=== PATIENT | female | born 1945 | race Caucasian/White ===

== ENCOUNTER 2018-06-23 18:02 | Emergency (ER) | payer MEDICARE, BC ==
[2018-06-23 18:15] VITALS: BP 159/61
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
[2018-06-23] MEDS ORDERED: Sodium Chloride 0.9% 10 ML Syringe FLUSH PRN (18:44)
--- NOTE | 2018-06-24 07:02 | CR ---
Chest: Two views of the chest were obtained. Comparison: Prior chest x-ray of 12/05/15. Increased density within the left base which appears chronic. Increased density within right upper and right lower lung which also appears similar to prior exam and presumably is chronic. I do not see any acute change within the lungs when compared to prior chest x-ray. Heart size is normal. Tortuous thoracic aorta is seen. Ventriculoperitoneal shunt is incidentally noted. Bony structures appear within normal limits for the patient's age. Impression: 1. Findings as noted above believed to be stable from previous study. Nothing acute is definitely appreciated. Diagnostic code #2
== END 2018-06-23 20:33 | disposition home or self-care (01) ==
LOC: JD.ED 18:02
DX: R60.0 Localized edema (principal); I10 Essential (primary) hypertension; E78.00 Pure hypercholesterolemia, unspecified; F41.9 Anxiety disorder, unspecified; F32.9 Major depressive disorder, single episode, unspecified; E11.9 Type 2 diabetes mellitus without complications; E03.9 Hypothyroidism, unspecified; Z79.4 Long term (current) use of insulin; Z87.891 Personal history of nicotine dependence; Z79.899 Other long term (current) drug therapy; Z88.0 Allergy status to penicillin; Z91.09 Other allergy status, other than to drugs and biological substances
CPT/HCPCS: 36415; 71046; 71046-26; 80053; 83880; 84484; 85007; 85027; 93005; 93010; 99284; 99284-25

== ENCOUNTER 2019-03-29 13:44 | Emergency (ER) | payer MEDICARE, BC ==
[2019-03-29] MEDS ORDERED: Albuterol/Ipratropium 3.0-0.5 MG/3 ML Neb Soln NEB ONE (14:34)
[2019-03-29] MEDS ORDERED: Sodium Chloride 0.9% 10 ML Syringe FLUSH PRN (14:34)
--- NOTE | 2019-03-29 15:25 | EDM.PDOC ---
ED HPI GENERAL MEDICAL PROBLEM - General Chief Complaint: Respiratory Problem Stated Complaint: COUGH Time Seen by Provider: 03/29/19 14:31 Source of Information: Reports: Patient, RN Notes Reviewed History Limitations: Reports: No Limitations - History of Present Illness INITIAL COMMENTS - FREE TEXT/NARRATIVE: Patient is a 73-year-old female who presents to the ED for the evaluation of a cough. Patient notes that this cough developed on , she states shortly after this she was placed on antibiotics for a suspected pneumonia. She does not member what that was however. She notes that she was feeling a little bit better yesterday, but today woke up with a worsening cough, and increased shortness of breath. Patient notes that she wears 3 L of oxygen as needed at home. And she has been using that continuously, and states that her oxygen sats of been just above 90 with rest. She is complaining also of body aches, congestion, and a pretty severe headache. 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 She notes she is having some mild nausea and diarrhea as well, and is coughing up a small amount of yellow phlegm with this. She notes that she does have a history of COPD, and is prone to getting pneumonia. She also notes that she has a history of RA, and she states that this is in her lungs as well. Generalized Pain Score (Numeric/FACES): 7 - Related Data Allergies Allergy/AdvReac Type Severity Reaction Status Date / Time mold Allergy Airway Verified 03/29/19 14:17 Tightness Penicillins Allergy Itching Verified 03/29/19 14:17 Home Meds: Home Meds Fluticasone Propionate [Flonase Allergy Relief] 1 spray CLARA BID PRN 12/05/15 [ History] Folic Acid 3 mg PO DAILY 12/05/15 [History] Insulin Detemir [Levemir Flextouch] 30 unit SQ DAILY 12/05/15 [History] Levothyroxine 150 mcg PO ACBREAKFAST 12/05/15 [History] Lisinopril 20 mg PO DAILY 12/05/15 [History] Omeprazole 20 mg PO DAILY PRN 12/05/15 [History] Simvastatin [Zocor] 20 mg PO BEDTIME 12/05/15 [History] traZODone 150 mg PO BEDTIME 12/05/15 [History] traMADol [Ultram] 50 mg PO Q6H PRN #20 tablet 01/01/16 [Rx] Albuterol/Ipratropium [DuoNeb 3.0-0.5 MG/3 ML] 3 ml .XX ASDIRECTED PRN 02/02/18 [History] Fluticasone/Salmeterol [Advair 250-50] 1 puff INH BID 02/02/18 [History] Albuterol [Proventil HFA] 1 - 2 puff INH Q4HR PRN 06/23/18 [History] Diclofenac Sodium [Voltaren 1% Gel] 2 gm TOP QID 06/23/18 [History] Escitalopram [Lexapro] 20 mg PO DAILY 06/23/18 [History] Furosemide [Lasix] 20 mg PO ASDIRECTED 06/23/18 [History] Hydroxychloroquine Sulfate [Plaquenil] 200 mg PO BID 06/23/18 [History] Insulin Aspart [NovoLOG] 2 - 15 units SQ TID 06/23/18 [History] Losartan [Cozaar] 50 mg PO DAILY 06/23/18 [History] Metoprolol Succinate [Toprol Xl] 25 mg PO DAILY 06/23/18 [History] Mirabegron [Myrbetriq] 25 mg PO DAILY 06/23/18 [History] Umeclidinium [place] [Incruse Ellipta*] 1 puff INH DAILY 06/23/18 [History] amLODIPine [Norvasc] 5 mg PO DAILY 06/23/18 [History] buPROPion HCl [Wellbutrin Xl] 150 mg PO DAILY 06/23/18 [History] tiZANidine HCl [Zanaflex] 2 mg PO BEDTIME PRN 06/23/18 [History] Furosemide [Lasix] 40 mg PO DAILY #30 tablet 11/12/18 [Rx] Oseltamivir [Tamiflu] 75 mg PO BID #8 cap 03/29/19 [Rx] Past Medical History HEENT History: Reports: Impaired Vision Cardiovascular History: Reports: High Cholesterol, Hypertension, [place] Respiratory History: Reports: Asthma, COPD, Pneumonia, Recurrent, SOB Musculoskeletal History: Reports: RA Neurological History: Reports: Other (See Below) Other Neuro History: hydrocephalus Psychiatric History: Reports: Anxiety, Depression Endocrine/Metabolic History: Reports: Diabetes, Type II, Hypothyroidism Oncologic (Cancer) History: Reports: Ovarian, Uterine - Past Surgical History GI Surgical History: Reports: Appendectomy, Cholecystectomy Female Surgical History: Reports: D&C Neurological Surgical History: Reports: Other (See Below) Other Neurological Surgeries/Procedures: back pain/spasms Social & Family History - Family History Family Medical History: Noncontributory - Tobacco Use Smoking Status *Q: Former Smoker Used Tobacco, but Quit: Yes Month/Year Tobacco Last Used: 30 years ago - Caffeine Use Caffeine Use: Reports: Coffee Other Caffeine Use: 2-3 cups daily coffee and seldom with soda - Recreational Drug Use Recreational Drug Use: No - Living Situation & Occupation Living situation: Reports: Occupation: Retired ED ROS GENERAL - Review of Systems Review Of Systems: See Below Constitutional: Reports: Malaise (generalized). Denies: Fever, Chills HEENT: Denies: Rhinitis Respiratory: Reports: Shortness of Breath, Cough, Sputum Cardiovascular: Denies: Chest Pain GI/Abdominal: Reports: Diarrhea, Decreased Appetite, Nausea. Denies: Abdominal Pain, Vomiting Neurological: Reports: Headache ED EXAM, GENERAL - Physical Exam Exam: See Below Exam Limited By: No Limitations General Appearance: Alert, WD/WN, No Apparent Distress Eye Exam: Bilateral Eye: EOMI, Normal Inspection, Periorbital Changes Ears: Normal External Exam Throat/Mouth: Normal Inspection, Normal Lips, Normal Teeth, Normal Gums, Normal Oropharynx, Normal Voice, No Airway Compromise Head: Atraumatic, Normocephalic Neck: Normal Inspection Respiratory/Chest: No Respiratory Distress, Lungs Clear, Chest Non-Tender, Decreased Breath Sounds (diffuse bilaterally). No: Rhonchi, Wheezing Cardiovascular: Normal Peripheral Pulses, Regular Rate, Rhythm, No Edema, No Murmur Peripheral Pulses: 3+: Radial (L), Radial (R) Extremities: Normal Inspection, Normal Capillary Refill Neurological: Alert, Oriented, Normal Cognition, No Motor/Sensory Deficits Psychiatric: Normal Affect, Normal Mood Skin Exam: Warm, Dry, Intact, Normal Color, No Rash EKG INTERPRETATION EKG Date: 03/29/19 Time: 14:57 Rhythm: NSR Rate (Beats/Min): 64 [place]: Normal P-Wave: Present QRS: Normal ST-T: Normal QT: Prolonged EKG Interpretation Comments: Reviewed with Dr. Kuylen. No acute ischemic changes. Course - Vital Signs Last Recorded V/S: Last Vital Signs Temp 98.1 F 03/29/19 14:14 Pulse 74 03/29/19 14:14 Resp 26 H 03/29/19 14:14 BP 138/113 H 03/29/19 14:14 Pulse Ox 95 03/29/19 14:56 - Orders/Labs/Meds Orders: Active Orders 24 hr Category Date Time Status EKG Documentation Completion [RC] STAT Care 03/29/19 14:34 Ordered Peripheral IV Care [RC] . DIRECTED Care 03/29/19 14:34 Ordered RT Aerosol Therapy [RC] ASDIRECTED Care 03/29/19 14:35 Ordered Chest 2V [CR] Stat Exams 03/29/19 14:33 Ordered Sodium Chloride 0.9% [Saline Flush] Med 03/29/19 14:34 Ordered 10 ml FLUSH ASDIRECTED PRN Peripheral IV Insertion Adult [OM.PC] Stat Oth 03/29/19 14:34 Ordered Medication Orders Sodium Chloride (Saline Flush) 10 ml FLUSH ASDIRECTED PRN PRN Reason: Keep Vein Open Last Admin: 03/29/19 14:50 Dose: 10 ml Labs: Laboratory Tests 03/29/19 03/29/19 03/29/19 Range/Units 14:25 14:25 14:25 WBC 5.74 (3.98-10.04) K/mm3 RBC 4.10 (3.98-5.22) M/mm3 Hgb 12.0 (11.2-15.7) gm/dl Hct 38.0 (34.1-44.9) % MCV 92.7 D (79.4-94.8) fl MCH 29.3 (25.6-32.2) pg MCHC 31.6 L (32.2-35.5) g/dl RDW Std Deviation 45.2 (36.4-46.3) fL Plt Count 180 L (182-369) K/mm3 MPV 10.5 (9.4-12.3) fl Neutrophils % (Manual) 58 (40-60) % Band Neutrophils % 0 (0-10) % Lymphocytes % (Manual) 29 (20-40) % Atypical Lymphs % 0 % Monocytes % (Manual) 10 (2-10) % Eosinophils % (Manual) 2 (0.7-5.8) % Basophils % (Manual) 1 (0.1-1.2) Platelet Estimate Adequate RBC Morph Comment Normal PT 11.3 (9.7-12.0) SECONDS INR 1.04 APTT 23 (22-31) SECONDS Puncture Site ABG pH (7.35-7.45) ABG pCO2 (35.0-45.0) mmHg ABG pO2 (80.0-100.0) mmHg ABG HCO3 (22.0-26.0) meq/L ABG O2 Saturation (96.0-97.0) % ABG Base Excess (-2-2.0) Glenn Test A-a Gradient mmHg O2 Delivery Device Oxygen Flow Rate FiO2 (21.00-100.00) % Sodium 141 (136-145) mEq/L Potassium 3.7 (3.5-5.1) mEq/L Chloride 104 (98-107) mEq/L Carbon Dioxide 28 (21-32) mEq/L Anion Gap 12.7 (5-15) BUN 15 (7-18) mg/dL Creatinine 1.4 H (0.55-1.02) mg/dL Est Cr Clr Drug Dosing 30.49 mL/min Estimated GFR (MDRD) 37 (>60) mL/min BUN/Creatinine Ratio 10.7 L (14-18) Glucose 139 H (83-115) mg/dL Calcium 8.4 L (8.5-10.1) mg/dL Total Bilirubin 0.5 (0.2-1.0) mg/dL AST 33 (15-37) U/L ALT 32 (14-59) U/L Alkaline Phosphatase 88 (46-116) U/L Troponin I < 0.017 (0.00-0.056) ng/mL NT-Pro-B Natriuret Pep (0-125) pg/mL Total Protein 7.6 (6.4-8.2) g/dl Albumin 2.7 L (3.4-5.0) g/dl Globulin 4.9 gm/dL Albumin/Globulin Ratio 0.6 L (1-2) 03/29/19 03/29/19 Range/Units 14:25 15:43 WBC (3.98-10.04) K/mm3 RBC (3.98-5.22) M/mm3 Hgb (11.2-15.7) gm/dl Hct (34.1-44.9) % MCV (79.4-94.8) fl MCH (25.6-32.2) pg MCHC (32.2-35.5) g/dl RDW Std Deviation (36.4-46.3) fL Plt Count (182-369) K/mm3 MPV (9.4-12.3) fl Neutrophils % (Manual) (40-60) % Band Neutrophils % (0-10) % Lymphocytes % (Manual) (20-40) % Atypical Lymphs % % Monocytes % (Manual) (2-10) % Eosinophils % (Manual) (0.7-5.8) % Basophils % (Manual) (0.1-1.2) Platelet Estimate RBC Morph Comment PT (9.7-12.0) SECONDS INR APTT (22-31) SECONDS Puncture Site Lt radial ABG pH 7.45 (7.35-7.45) ABG pCO2 40.8 (35.0-45.0) mmHg ABG pO2 79.0 L (80.0-100.0) mmHg ABG HCO3 28.2 H (22.0-26.0) meq/L ABG O2 Saturation 91.8 L (96.0-97.0) % ABG Base Excess 4.4 H (-2-2.0) Glenn Test Positive A-a Gradient 56 mmHg O2 Delivery Device Nasal cannula Oxygen Flow Rate 1.5 FiO2 26.00 (21.00-100.00) % Sodium (136-145) mEq/L Potassium (3.5-5.1) mEq/L Chloride (98-107) mEq/L Carbon Dioxide (21-32) mEq/L Anion Gap (5-15) BUN (7-18) mg/dL Creatinine (0.55-1.02) mg/dL Est Cr Clr Drug Dosing mL/min Estimated GFR (MDRD) (>60) mL/min BUN/Creatinine Ratio (14-18) Glucose (83-115) mg/dL Calcium (8.5-10.1) mg/dL Total Bilirubin (0.2-1.0) mg/dL AST (15-37) U/L ALT (14-59) U/L Alkaline Phosphatase (46-116) U/L Troponin I (0.00-0.056) ng/mL NT-Pro-B Natriuret Pep 728 H (0-125) pg/mL Total Protein (6.4-8.2) g/dl Albumin (3.4-5.0) g/dl Globulin gm/dL Albumin/Globulin Ratio (1-2) Meds: Medications Generic Name Dose Route Start Last Admin Trade Name Freq PRN Reason Stop Dose Admin Sodium Chloride 10 ml 03/29/19 14:34 03/29/19 14:50 Saline Flush FLUSH 10 ml ASDIRECTED PRN Administration Keep Vein Open Discontinued Medications Generic Name Dose Route Start Last Admin Trade Name Freq PRN Reason Stop Dose Admin Albuterol/Ipratropium 3 ml 03/29/19 14:34 03/29/19 14:56 Duoneb 3.0-0.5 Mg/3 Ml NEB 03/29/19 14:35 3 ml ONETIME ONE Administration Oseltamivir Phosphate 150 mg 03/29/19 16:17 Tamiflu PO 03/29/19 16:18 ONETIME ONE - Re-Assessments/Exams Free Text/Narrative Re-Assessment/Exam: 03/29/19 15:26 Patient presents to the ED for evaluation of worsening cough, and other generalized complaints. Did swab her for influenza, and have ordered CBC, CMP, BNP, EKG, troponin, coags, ABG, a duoneb and a chest x-ray for initial evaluation and management. 03/29/19 16:04 Patient's chest x-ray is done, and appears to be within normal limits for herself, this was compared to a chest x-ray done in June 2018. There are no obvious acute changes. These were reviewed by myself and Dr. Restrepo. There were areas that were suspicious for possible fibrosis however. No obvious signs of pneumonia or consolidation. White blood cell count is within normal limits, metabolic panel is essentially unremarkable. EKG shows no acute ischemic changes and trop is negative as well. Patient's influenza swab was positive for both influenza A and influenza B. It is likely that this is what is causing most of her issues. Departure - Departure Time of Disposition: 16:25 Disposition: Home, Self-Care 01 Condition: Fair Clinical Impression: Influenza A, Influenza B - Discharge Information *PRESCRIPTION DRUG MONITORING PROGRAM REVIEWED*: No *COPY OF PRESCRIPTION DRUG MONITORING REPORT IN PATIENT ROBB: No Prescriptions: Oseltamivir [Tamiflu] 75 mg PO BID #8 cap Instructions: Influenza, Adult, [id number] Referrals: Milan Alexandra MD [Primary Care Provider] - Forms: ED Department Discharge, ED Return to Work/School Form Additional Instructions: You have been evaluated in the ED for your cough and other generalized complaints. You did test positive for influenza A & B. Please try to limit your exposure to others until you are 24 hours fever free. May take 500mg Tylenol/600 mg ibuprofen every 6 hours as needed for general aches/fever. Please encourage fluid intake as well as a bland diet until you can tolerate normal foods. Recommend you use your nebulizers more, such as 3 times a day while you are feeling most ill. You were given a prescription for Tamiflu, please take 1 tab 2 times a day until gone. Your first 2 doses were given to you in the ER, you were given the first dose in the ER, and given 1 tab to take home for tomorrow morning. Please return to the ED if your symptoms should change or worsen. Sepsis Event Note - Evaluation Sepsis Screening Result: No Definite Risk - Focused Exam Vital Signs: Vital Signs Temp Pulse Resp BP Pulse Ox Pulse Ox 03/29/19 14:56 95 03/29/19 14:14 98.1 F 74 26 H 138/113 H 95 Date Exam was Performed: 03/29/19 Time Exam was Performed: 16:25 - My Orders Last 24 Hours: My Active Orders 03/29/19 14:33 Chest 2V [CR] Stat 03/29/19 14:34 EKG Documentation Completion [RC] STAT Peripheral IV Care [RC] . DIRECTED Sodium Chloride 0.9% [Saline Flush] 10 ml FLUSH ASDIRECTED PRN Peripheral IV Insertion Adult [OM.PC] Stat 03/29/19 14:35 RT Aerosol Therapy [RC] ASDIRECTED - Assessment/Plan Last 24 Hours: My Active Orders 03/29/19 14:33 Chest 2V [CR] Stat 03/29/19 14:34 EKG Documentation Completion [RC] STAT Peripheral IV Care [RC] . DIRECTED Sodium Chloride 0.9% [Saline Flush] 10 ml FLUSH ASDIRECTED PRN Peripheral IV Insertion Adult [OM.PC] Stat 03/29/19 14:35 RT Aerosol Therapy [RC] ASDIRECTED
[2019-03-29] MEDS ORDERED: Oseltamivir 75 MG Cap PO ONE (16:17)
[2019-03-29] MEDS ORDERED: Oseltamivir 75 MG Cap ONE ×2 (16:29→16:34)
[2019-03-29 16:42] VITALS: BP 130/76; PULSE 66
--- NOTE | 2019-03-29 17:55 | CR ---
Chest: 2 views of the chest were obtained. Comparison: Prior chest x-ray of 06/23/18. Increasing density is seen within both sides of the chest when compared to prior exam. Some of this appears chronic but difficult to exclude superimposed developing bronchitis/pneumonia. Ventriculoperitoneal shunt appears to be present. Bony structures shows mild scoliosis. Surgical clips are noted from prior cholecystectomy. Impression: 1. Increasing density within both sides is chest. As mentioned above, some of this appears chronic but difficult to exclude superimposed bronchitis/pneumonia. 2. Other findings believed to be incidental and nonacute as described above. Diagnostic code #3 This report was dictated in [place] Standard Time
== END 2019-03-29 16:42 | disposition home or self-care (01) ==
LOC: JD.ED 13:44
DX: J10.1 Influenza due to other identified influenza virus with other respiratory manifestations (principal); I10 Essential (primary) hypertension; I25.2 Old myocardial infarction; J44.9 Chronic obstructive pulmonary disease, unspecified; E03.9 Hypothyroidism, unspecified; E11.9 Type 2 diabetes mellitus without complications; Z79.4 Long term (current) use of insulin; F32.9 Major depressive disorder, single episode, unspecified; Z88.0 Allergy status to penicillin; Z91.048 Other nonmedicinal substance allergy status; Z79.51 Long term (current) use of inhaled steroids; Z79.890 Hormone replacement therapy; Z79.899 Other long term (current) drug therapy; Z87.891 Personal history of nicotine dependence; R06.02 Shortness of breath
CPT/HCPCS: 36415; 36600; 71046; 80053; 82803; 83880; 84484; 85007; 85027; 85610; 85730; 87804; 93005; 94640; 99284; A9270; 93010; 99283; J7620-GY

== ENCOUNTER 2020-07-11 09:18 | Emergency (ER) | payer MEDICARE, BC ==
[2020-07-11 10:56] VITALS: PULSE 66
[2020-07-11] MEDS ORDERED: HYDROmorphone 0.5 MG/0.5 ML Syringe IVPUSH ONE ×2 (11:09→14:52)
[2020-07-11] MEDS ORDERED: Ondansetron 4 MG/2 ML SDV IVPUSH ONE (11:09)
[2020-07-11] MEDS ORDERED: Metoclopramide 10 MG/2 ML SDV IVPUSH ONE (11:09)
--- NOTE | 2020-07-11 11:09 | EDM.PDOC ---
ED HPI GENERAL MEDICAL PROBLEM - General Chief Complaint: Neck Problem Stated Complaint: SWOLLEN NECK Time Seen by Provider: 07/11/20 11:03 Source of Information: Reports: Patient History Limitations: Reports: No Limitations - History of Present Illness INITIAL COMMENTS - FREE TEXT/NARRATIVE: 75-year-old female presents to the ED with a painful swelling that is gradually enlarging inferior to her right mandible starting last July 06. She was seen in the clinic and did have a CT of her neck at [facility]. It was felt that she had enlarged submandibular gland and she was started on oral antibiotic of which she does not know the name of. She reports no improvement. Pain is increasing in the right side of her neck and making it extremely difficult to swallow. She states she could not eat solids for the last 2 days and only sips of clear fluids. Every attempt to swallow is extremely painful. She is unclear whether she is running a fever or experiencing any chills. Of note she is a type II diabetic using insulin for control. She is on multiple other medications supposedly for rheumatoid arthritis which makes her immunocompromised. On [employer] on [facility] where she purchased her medications. She was started on Cipro 250 mg twice daily for 10 days and clindamycin 150 mg p.o. 4 times daily for 10 days as well. Onset: Gradual Onset Date: 07/06/20 Duration: Day(s):, Getting Worse Location: Reports: Neck (Inferior to the right mandible which is exquisitely painful reddened and swollen compatible with a abscess likely originating from submandibular gland.) Quality: Reports: Ache, Pressure, Throbbing Severity: Moderate Improves with: Reports: None, Other (Been on Cipro and clindamycin for 4 days and is getting worse in spite of antibiotic treatment.) Worsens with: Reports: Other Context: Denies: Activity, Exercise (In the area makes it much worse. Also swallowing makes the pain much worse.), Lifting, Sick Contact, Trauma Associated Symptoms: Reports: Loss of Appetite. Denies: No Other Symptoms, Conf usion, Chest Pain, Cough, cough w sputum, Diaphoresis, Fever/Chills, Headaches, Malaise, Nausea/Vomiting, Rash, Seizure, Shortness of Breath, Syncope, Weakness Treatments WRITER EDITOR: Reports: Acetaminophen Right Neck Pain Score (Numeric/FACES): 7 - Related Data Allergies Allergy/AdvReac Type Severity Reaction Status Date / Time mold Allergy Airway Verified 07/11/20 10:56 Tightness Penicillins Allergy Itching Verified 07/11/20 10:56 Home Meds: Home Meds Fluticasone Propionate [Flonase Allergy Relief] 1 spray CLARA BID PRN 12/05/15 [History] Folic Acid 3 mg PO DAILY 12/05/15 [History] Insulin Detemir [Levemir Flextouch] 30 unit SQ DAILY 12/05/15 [History] Levothyroxine 150 mcg PO ACBREAKFAST 12/05/15 [History] Lisinopril 20 mg PO DAILY 12/05/15 [History] Omeprazole 20 mg PO DAILY PRN 12/05/15 [History] Simvastatin [Zocor] 20 mg PO BEDTIME 12/05/15 [History] traZODone 150 mg PO BEDTIME 12/05/15 [History] traMADol [Ultram] 50 mg PO Q6H PRN #20 tablet 01/01/16 [Rx] Albuterol/Ipratropium [DuoNeb 3.0-0.5 MG/3 ML] 3 ml .XX ASDIRECTED PRN 02/02/18 [History] Fluticasone/Salmeterol [Advair 250-50] 1 puff INH BID 02/02/18 [History] Albuterol [Proventil HFA] 1 - 2 puff INH Q4HR PRN 06/23/18 [History] Diclofenac Sodium [Voltaren 1% Gel] 2 gm TOP QID 06/23/18 [History] Escitalopram [Lexapro] 20 mg PO DAILY 06/23/18 [History] Furosemide [Lasix] 20 mg PO ASDIRECTED 06/23/18 [History] Hydroxychloroquine Sulfate [Plaquenil] 200 mg PO BID 06/23/18 [History] Insulin Aspart [NovoLOG] 2 - 15 units SQ TID 06/23/18 [History] Losartan [Cozaar] 50 mg PO DAILY 06/23/18 [History] Metoprolol Succinate [Toprol Xl] 25 mg PO DAILY 06/23/18 [History] Mirabegron [Myrbetriq] 25 mg PO DAILY 06/23/18 [History] [facility] [Incruse Ellipta*] 1 puff INH DAILY 06/23/18 [History] amLODIPine [Norvasc] 5 mg PO DAILY 06/23/18 [History] buPROPion HCL [Wellbutrin Xl] 150 mg PO DAILY 06/23/18 [History] tiZANidine HCl [Zanaflex] 2 mg PO BEDTIME PRN 06/23/18 [History] Furosemide [Lasix] 40 mg PO DAILY #30 tablet 11/12/18 [Rx] Oseltamivir [Tamiflu] 75 mg PO BID #8 cap 03/29/19 [Rx] Past Medical History HEENT History: Reports: Allergic Rhinitis (Chronic allergic rhinitis. Using Flonase.), Hard of Hearing, Impaired Vision Cardiovascular History: Reports: High Cholesterol, Hypertension, SC Respiratory History: Reports: Asthma, COPD, Pneumonia, Recurrent, Pulmonary Fibrosis (Reportedly from having pneumonia some many times.), SOB Musculoskeletal History: Reports: RA (On Plaquenil and Voltaren for rheumatoid arthritis) Neurological History: Reports: Other (See Below) Other Neuro History: hydrocephalus--has a ventriculoperitoneal shunt on the right side. Psychiatric History: Reports: Anxiety, Depression Endocrine/Metabolic History: Reports: Diabetes, Type II, Hypothyroidism Oncologic (Cancer) History: Reports: Ovarian, Uterine - Past Surgical History GI Surgical History: Reports: Appendectomy, Cholecystectomy Female Surgical History: Reports: D&C Neurological Surgical History: Reports: Other (See Below) Other Neurological Surgeries/Procedures: back pain/spasms Social & Family History - Family History Family Medical History: No Pertinent Family History - Caffeine Use Caffeine Use: Reports: Coffee Other Caffeine Use: 2-3 cups daily coffee and seldom with soda - Living Situation & Occupation Living situation: Reports: Occupation: Retired ED ROS ENT - Review of Systems Review Of Systems: See Below Constitutional: Reports: Malaise, Weakness, Fatigue, Decreased Appetite (To painful to eat.). Denies: Fever, Chills, Weight Loss HEENT: Reports: Glasses (Hearing loss without use of hearing aids.), Hearing Loss, Throat Pain (Severe throat pain right side of her neck making it very difficult to even drink water.) Respiratory: Reports: Shortness of Breath. Denies: Wheezing, Pleuritic Chest Pain (Duration.), Cough, Sputum, Hemoptysis Cardiovascular: Reports: Blood Pressure Problem, Dyspnea on Exertion (Lesional edema lower extremities.), Edema. Denies: Chest Pain, Claudication, Lightheadedness, Orthopnea Endocrine: Reports: Fatigue ( Chronically) GI/Abdominal: Reports: Constipation : Reports: Frequency, Incontinence Musculoskeletal: Reports: Joint Pain (And stress components.) Skin: Reports: No Symptoms ( Knees hips low back neck and shoulders at times.) Neurological: Reports: No Symptoms Psychiatric: Reports: No Symptoms Hematologic/Lymphatic: Reports: No Symptoms Immunologic: Reports: No Symptoms ED EXAM, ENT - Physical Exam Exam: See Below Exam Limited By: Other (Temperature is 36.1 degrees. Heart rate 66 and sinus respiratory 16 BP 150/117 this is not likely correct since the pulse pressure is too close together. Oximetry reads 92% on room air.) General Appearance: Alert, WD/WN, Moderate Distress, Other (He has read indurated swelling inferior anterior aspect of the right mandible. The area is 9 cm in width and approximately 6 to 8 cm in depth and very tender to movement.) Eye Exam: Bilateral Eye: Normal Inspection, PERRL (No scleral icterus or blepharal pallor.) Ears: Normal TMs Nose: Normal Inspection Mouth/Throat: Normal Inspection, Normal Gums, Other (Patient on the undersurface of the tongue reveals a painful mass right side. No mass palpable on palpation of the left side. The posterior oropharynx is normal.) Head: Atraumatic, Normocephalic, Other (No outward signs of any head or facial trauma.) Neck: Supple (Neck is supple. She does have some loss of lateral rotation due to painful), Other (Patient has a large indurated mass right anterior inferior right mandible which is red and warm to palpation. It measures approximately 9 cm x 8 cm in dimension and is only slightly mobile. It is very tender to touch.). No: Normal Inspection Respiratory/Chest: No Respiratory Distress ( mass in her right side of her neck when looking to the right.), Lungs Clear, No Accessory Muscle Use, Decreased Breath Sounds Cardiovascular: Regular Rate, Rhythm, No Edema, No Gallop, No Murmur, No Rub, Other. No: Normal Peripheral Pulses (Lungs are mildly diminished to the posterior lung cruz by 20%.) GI/Abdominal: Normal Bowel Sounds (Sounds are difficult to hear due to thick chest.), Soft, Non-Tender, No Organomegaly, No Mass, Pelvis Stable, Other (Patient has had previous cholecystectomy and appendectomy.) Back: Normal Inspection, Full Range of Motion, Other (Increased lordotic curvature lumbar spine. He has evidence of previous lumbar spine surgery with midline healed scar.). No: CVA Tenderness (L), CVA Tenderness (R) Extremities: Pedal Edema (Pedal edema at the ankles.), Other (3 changes in both knees) Neurological: Alert, Oriented, CN II-XII Intact, Normal Cognition Psychiatric: Normal Affect, Normal Mood Skin: Warm, Dry, Intact, Normal Color, No Rash (Red indurated rash over a mass in the right anterior inferior neck inferior to the mandible.) #1 Interpretation EKG Date: 07/11/20 Time: 12:15 Rhythm: NSR Rate (Beats/Min): 65 [place]: Normal P-Wave: Present QRS: Other (Early R wave transition consider right ventricular hypertrophy pattern versus septal hypertrophy.) ST-T: Other (T wave flattening aVL nonspecific finding) QT: Prolonged (QTC mildly prolonged) EKG Interpretation Comments: Borderline ECG Course - Vital Signs Last Recorded V/S: Last Vital Signs Temp 36.1 C 07/11/20 10:53 Pulse 66 07/11/20 10:53 Resp 16 07/11/20 10:53 BP 150/117 H 07/11/20 10:53 Pulse Ox 92 L 07/11/20 10:53 - Orders/Labs/Meds Orders: Active Orders 24 hr Category Date Time Status EKG Documentation Completion [RC] STAT Care 07/11/20 11:11 Active CULTURE BLOOD [BC] Stat Lab 07/11/20 11:47 Received CULTURE BLOOD [BC] Stat Lab 07/11/20 11:58 Received URINALYSIS W/MICROSCOPIC [UA W/MICROSCOPIC] [URIN] Stat Lab 07/11/20 11:12 Ordered Sodium Chloride 0.9% [Normal Saline] 1,000 ml Med 07/11/20 13:30 Active IV ASDIRECTED Sodium Chloride 0.9% [Saline Flush] Med 07/11/20 12:49 Active 10 ml FLUSH ONETIME PRN Blood Culture x2 Reflex Set [OM.PC] Stat Oth 07/11/20 11:12 Ordered Medication Orders Sodium Chloride (Normal Saline) 1,000 mls @ 999 mls/hr IV ASDIRECTED MAT Sodium Chloride (Sodium Chloride 0.9% 10 Ml Syringe) 10 ml FLUSH ONETIME PRN PRN Reason: IV FLUSH Last Admin: 07/11/20 13:12 Dose: 10 ml Documented by: SHAZIA Labs: Laboratory Tests 07/11/20 07/11/20 07/11/20 Range/Units 11:37 11:37 11:37 WBC 14.41 H (3.98-10.04) K/mm3 RBC 4.37 (3.98-5.22) M/mm3 Hgb 13.4 (11.2-15.7) gm/dl Hct 41.9 (34.1-44.9) % MCV 95.9 H D (79.4-94.8) fl MCH 30.7 (25.6-32.2) pg MCHC 32.0 L (32.2-35.5) g/dl RDW Std Deviation 53.2 H (36.4-46.3) fL Plt Count 222 (182-369) K/mm3 MPV 11.1 (9.4-12.3) fl Neutrophils % (Manual) 74 H (40-60) % Band Neutrophils % 0 (0-10) % Lymphocytes % (Manual) 22 (20-40) % Atypical Lymphs % 0 % Monocytes % (Manual) 2 (2-10) % Eosinophils % (Manual) 2 (0.7-5.8) % Basophils % (Manual) 0 L (0.1-1.2) Platelet Estimate Adequate RBC Morph Comment Normal PT (9.7-12.0) SECONDS INR APTT (21.7-31.4) SECONDS Sodium 135 L (136-145) mEq/L Potassium 4.3 (3.5-5.1) mEq/L Chloride 96 L (98-107) mEq/L Carbon Dioxide 25 (21-32) mEq/L Anion Gap 18.3 H (5-15) BUN 28 H (7-18) mg/dL Creatinine 2.0 H (0.55-1.02) mg/dL Est Cr Clr Drug Dosing TNP Estimated GFR (MDRD) 24 (>60) mL/min BUN/Creatinine Ratio 14.0 (14-18) Glucose 199 H (83-115) mg/dL Calcium 9.4 (8.5-10.1) mg/dL Magnesium 2.3 (1.8-2.4) mg/dl Total Bilirubin 0.7 (0.2-1.0) mg/dL AST 37 (15-37) U/L ALT 49 (14-59) U/L Alkaline Phosphatase 125 H (46-116) U/L C-Reactive Protein 30.6 H* (<1.0) mg/dL NT-Pro-B Natriuret Pep 710 H (0-125) pg/mL Total Protein 8.6 H (6.4-8.2) g/dl Albumin 3.2 L (3.4-5.0) g/dl Globulin 5.4 gm/dL Albumin/Globulin Ratio 0.6 L (1-2) SARS-CoV-2 RNA (RAAD) (NEGATIVE) 07/11/20 07/11/20 Range/Units 12:24 12:30 WBC (3.98-10.04) K/mm3 RBC (3.98-5.22) M/mm3 Hgb (11.2-15.7) gm/dl Hct (34.1-44.9) % MCV (79.4-94.8) fl MCH (25.6-32.2) pg MCHC (32.2-35.5) g/dl RDW Std Deviation (36.4-46.3) fL Plt Count (182-369) K/mm3 MPV (9.4-12.3) fl Neutrophils % (Manual) (40-60) % Band Neutrophils % (0-10) % Lymphocytes % (Manual) (20-40) % Atypical Lymphs % % Monocytes % (Manual) (2-10) % Eosinophils % (Manual) (0.7-5.8) % Basophils % (Manual) (0.1-1.2) Platelet Estimate RBC Morph Comment PT 11.4 (9.7-12.0) SECONDS INR 1.07 APTT 28.1 (21.7-31.4) SECONDS Sodium (136-145) mEq/L Potassium (3.5-5.1) mEq/L Chloride (98-107) mEq/L Carbon Dioxide (21-32) mEq/L Anion Gap (5-15) BUN (7-18) mg/dL Creatinine (0.55-1.02) mg/dL Est Cr Clr Drug Dosing Estimated GFR (MDRD) (>60) mL/min BUN/Creatinine Ratio (14-18) Glucose (83-115) mg/dL Calcium (8.5-10.1) mg/dL Magnesium (1.8-2.4) mg/dl Total Bilirubin (0.2-1.0) mg/dL AST (15-37) U/L ALT (14-59) U/L Alkaline Phosphatase (46-116) U/L C-Reactive Protein (<1.0) mg/dL NT-Pro-B Natriuret Pep (0-125) pg/mL Total Protein (6.4-8.2) g/dl Albumin (3.4-5.0) g/dl Globulin gm/dL Albumin/Globulin Ratio (1-2) SARS-CoV-2 RNA (RAAD) Negative (NEGATIVE) Meds: Medications Generic Name Dose Route Start Last Admin Trade Name Onur PRN Reason Stop Dose Admin Sodium Chloride 1,000 mls @ 999 mls/hr 07/11/20 13:30 Normal Saline IV ASDIRECTED MAT Sodium Chloride 10 ml 07/11/20 12:49 07/11/20 13:12 Sodium Chloride 0.9% 10 Ml Syringe FLUSH 10 ml ONETIME PRN Administration IV FLUSH Discontinued Medications Generic Name Dose Route Start Last Admin Trade Name Onur PRN Reason Stop Dose Admin Diphenhydramine HCl 12.5 mg 07/11/20 11:10 07/11/20 12:10 Diphenhydramine 50 Mg/Ml Sdv IVPUSH 07/11/20 11:11 12.5 mg ONETIME ONE Administration Hydromorphone HCl 0.5 mg 07/11/20 11:09 07/11/20 12:14 Hydromorphone 0.5 Mg/0.5 Ml Syringe IVPUSH 07/11/20 11:10 0.5 mg ONETIME ONE Administration Hydromorphone HCl 0.5 mg 07/11/20 14:52 07/11/20 15:00 Hydromorphone 0.5 Mg/0.5 Ml Syringe IVPUSH 07/11/20 14:53 0.5 mg ONETIME ONE Administration Dextrose/Sodium Chloride 1,000 mls @ 150 mls/hr 07/11/20 11:15 Dextrose 5%-Normal Saline IV ASDIRECTED MAT Sodium Chloride 1,000 mls @ 150 mls/hr 07/11/20 11:15 07/11/20 14:17 Normal Saline IV 999 mls/hr ASDIRECTED AMT Infusion Clindamycin Phosphate 900 mg/ 50 mls @ 100 mls/hr 07/11/20 12:05 07/11/20 12:28 Premix IV 07/11/20 12:34 100 mls/hr ONETIME ONE Administration Sodium Chloride 100 mls @ 75 mls/hr 07/11/20 13:00 07/11/20 13:12 Normal Saline IV 75 mls/hr ASDIRECTED MAT Administration Doxycycline Hyclate 100 mg/ 100 mls @ 100 mls/hr 07/11/20 14:47 07/11/20 15:16 Sodium Chloride IV 07/11/20 15:46 100 mls/hr ONETIME ONE Administration Iopamidol 50 ml 07/11/20 12:49 07/11/20 13:12 Iopamidol 755 Mg/Ml 50 Ml Bottle IVPUSH 07/11/20 12:50 50 ml ONETIME ONE Administration Metoclopramide HCl 7.5 mg 07/11/20 11:09 07/11/20 12:12 Metoclopramide 10 Mg/2 Ml Sdv IVPUSH 07/11/20 11:10 7.5 mg ONETIME ONE Administration Ondansetron HCl 4 mg 07/11/20 11:09 Ondansetron 4 Mg/2 Ml Sdv IVPUSH 07/11/20 11:10 ONETIME ONE - Radiology Interpretation Free Text/Narrative:: 75-year-old female presents to the ED with a large indurated mass inferior anterior to her right mandible. The mass is at least 9 x 8 cm in size indurated warm to palpation suggesting underlying abscess. It is exquisitely tender to movement and very painful for her to swallow. Mass came on gradually since July 06. She was seen by her primary care physician Dr. Alexandra--has been taking Cipro to 50 mg twice daily since , July 07 as well as clindamycin 150 mg 4 times daily and the mass is enlarging in spite of antibiotic therapy. Plan she will have routine labs performed. COVID-19 screen. Chest x-ray and ECG in preparation for surgery as she appears that she has a abscess in this area that is going to need to be drained likely by ENT surgery. She will have CT tissues of the neck with IV contrast. - Re-Assessments/Exams Free Text/Narrative Re-Assessment/Exam: 07/11/20 13:06 White count is mildly elevated at 14.41. The differential shows 74% neutrophils no bands cells reported. Hemoglobin is 13.4 with hematocrit of 41.9. MCV is elevated at 95.9. Platelet count 222,000. PT is 11.4 with an INR of 1.07 PTT is 28.1. Sodium is low at 135 with a potassium of 4.3. Chloride 96 with a bicarb of 25. Anion gap is elevated at 18.3 indicating volume depletion. BUN is 28 with a creatinine of 2.0 GFR is only 24 which is stage IV renal insufficiency. Glucose is 199. Calcium 9.4. Magnesium 2.3. Liver function normal. C-reactive protein is 30.6. Total protein 8.6 with an albumin fraction of 3.2. X-ray done portably reveals bilateral patchy infiltrates which appear to be somewhat chronic according to the radiologist. No acute parenchymal changes are seen. Ventriculoperitoneal shunt catheter is appreciated. Heart size is within normal limits. Tortuous thoracic aorta is noted. No acute osseous abnormalities are appreciated. Of concern is that the chest x-ray does have the appearance of possible COVID-19 illness. COVID-19 screen has been ordered but is not yet available. We will be normal saline now opened up to 4. This is due to the need for contrast for CT soft tissue of the neck. Renal function is poor with a GFR of 24. She is volume depleted however. 07/11/20 13:21 COVID-19 screen is negative. BNP is pending. CT scan of the soft tissues of the neck completed with a small dose of IV contrast due to poor renal function. Findings revealed a large low-density mass noted on the right side which is bilobulated. This obscures the submandibular salivary gland and could be submandibular salivary gland in etiology or simply obscuring the gland. There is slight ill-defined surface margins. This finding has the greatest AP measurement of 3.8 cm in greatest craniocaudal measurement of 4.7 cm. Intervertebral shunt catheter is noted. Visualized paranasal sinuses mastoid sinuses show nothing acute. Right and left globes are symmetric. No retrobulbar abnormalities appreciated. Parotid salivary glands are within normal limits. Parapharyngeal soft tissues are within normal limits. No prevertebral soft tissue swelling is noted. Visualized upper lungs show interstitial change most likely due to fibrosis. Scattered degenerative changes seen on bone window settings within the spine. 07/11/20 15:06 and on the phone for over an hour trying to find a place for this lady to go to have this suspect abscess incised and drained. Problems are encountered with PACs as well as we were not able to send the CT scan of her soft tissues of her neck with contrast or chest x-ray by PACS system to either [place] or [facility] in [place]. Disc will therefore be made of both images. We identified that there is no ear nose and throat surgeon on-call in [place] that could incise and drain this at this time. There is also no maxillofacial surgery available at this time is the one on-call is ill and the other one is out of the country. I therefore had to speak with 1 call through [facility] and ear nose and throat surgeon has accepted care but she preferred the patient be admitted to by the hospitalist for IV antibiotic therapy. I therefore spoke with and he is accepted care. We have no ambulance availability at this time neither with the travel this far away from [place]. She therefore has the ability to be transferred by private vehicle and I will send her with her daughter to take her to [place]. Ear nose and throat surgeon asked that we cover her for possible MRSA. Linezolid interacts with all of her medications and therefore was contraindicated. She was therefore given doxycycline 100 mg IV. She was also given a second dose of Dilaudid 0. 5 mg IV prior to transfer for pain relief. She will stay n.p.o. en route to [place]. Departure - Departure Time of Disposition: 16:50 Disposition: DC/Tfer to Acute Hospital 02 Condition: Fair Clinical Impression: Mass of right submandibular region, Pulmonary fibrosis, Mild congestive heart failure - Discharge Information *PRESCRIPTION DRUG MONITORING PROGRAM REVIEWED*: Not Applicable *COPY OF PRESCRIPTION DRUG MONITORING REPORT IN PATIENT ROBB: Not Applicable Referrals: Milan Alexandra MD [Primary Care Provider] - Forms: ED Department Discharge Additional Instructions: Travel to the [facility] in [place] to be admitted to the hospital under the care of Dr. Simons. Do not have anything to eat or drink in route to the hospital in case surgery is going to be carried out tonight. This will depend a bit upon which time you arrived. Sepsis Event Note (ED) - Evaluation Sepsis Screening Result: No Definite Risk - Focused Exam Vital Signs: Vital Signs Temp Pulse Resp BP Pulse Ox 07/11/20 10:53 36.1 C 66 16 150/117 H 92 L - My Orders Last 24 Hours: My Active Orders 07/11/20 11:11 EKG Documentation Completion [RC] STAT 07/11/20 11:12 URINALYSIS W/MICROSCOPIC [UA W/MICROSCOPIC] [URIN] Stat Blood Culture x2 Reflex Set [OM.PC] Stat 07/11/20 11:47 CULTURE BLOOD [BC] Stat 07/11/20 11:58 CULTURE BLOOD [BC] Stat 07/11/20 12:49 Sodium Chloride 0.9% [Saline Flush] 10 ml FLUSH ONETIME PRN 07/11/20 13:30 Sodium Chloride 0.9% [Normal Saline] 1,000 ml IV ASDIRECTED - Assessment/Plan Last 24 Hours: My Active Orders 07/11/20 11:11 EKG Documentation Completion [RC] STAT 07/11/20 11:12 URINALYSIS W/MICROSCOPIC [UA W/MICROSCOPIC] [URIN] Stat Blood Culture x2 Reflex Set [OM.PC] Stat 07/11/20 11:47 CULTURE BLOOD [BC] Stat 07/11/20 11:58 CULTURE BLOOD [BC] Stat 07/11/20 12:49 Sodium Chloride 0.9% [Saline Flush] 10 ml FLUSH ONETIME PRN 07/11/20 13:30 Sodium Chloride 0.9% [Normal Saline] 1,000 ml IV ASDIRECTED
[2020-07-11] MEDS ORDERED: diphenhydrAMINE 50 MG/ML SDV IVPUSH ONE (11:10)
[2020-07-11] MEDS ORDERED: Sodium Chloride 0.9% 1,000 ML IV SCH ×2 (11:15→13:30)
[2020-07-11] MEDS ORDERED: Dextrose 5%-0.9% NaCl 1,000 ML IV SCH (11:15)
[2020-07-11] MEDS ORDERED: Clindamycin Phosphate in D5W 900 MG in Premix Bag 1 BAG IV ONE ×2 (12:05)
--- NOTE | 2020-07-11 12:35 | CR ---
Chest: Portable view of the chest was obtained. Comparison: Prior chest x-ray of 03/29/19. Patchy areas of increased density are noted on both sides of the chest which appear to be chronic. No acute parenchymal change is seen. Ventriculoperitoneal shunt catheter is seen. Heart size is within normal limits. Tortuous thoracic aorta is noted. No acute osseous abnormality is appreciated. Impression: 1. Findings as noted above which are stable. 2. Nothing acute is appreciated. Diagnostic code #2
[2020-07-11] MEDS ORDERED: Sodium Chloride 0.9% 10 ML Syringe FLUSH PRN (12:49)
[2020-07-11] MEDS ORDERED: Iopamidol 755 MG/ML 50 ML Bottle IVPUSH ONE (12:49)
[2020-07-11] MEDS ORDERED: Sodium Chloride 0.9% 100 ML IV SCH (13:00)
--- NOTE | 2020-07-11 13:46 | CT ---
CT neck Technique: Multiple axial sections through the neck were obtained. Intravenous contrast was utilized. Reconstructed coronal and sagittal images were obtained. Comparison: No previous neck study. Findings: Large low density mass is noted on the right side which is bilobulated. This obscures the submandibular salivary gland and could be submandibular salivary gland in etiology or simply obscuring the gland. This has slight ill defined surface margins. This finding has the greatest AP measurement of 3.8 cm and greatest craniocaudal measurement of 4.7 cm. Intervertebral shunt catheter is noted. Visualized paranasal sinuses and mastoid sinuses show nothing acute. Right and left globes are symmetric. No retrobulbar abnormality is appreciated. Parotid salivary glands are within normal limits. Parapharyngeal soft tissues are within normal limits. No prevertebral soft tissue swelling is noted. Visualized upper lungs shows interstitial change most likely due to fibrosis. Scattered degenerative change is seen on bone window settings within the spine. Impression: 1. Large low density mass which obscures the right submandibular salivary gland. Uncertain if this is a mass which obscures this gland or an enlarged submandibular salivary gland. Findings are suspicious for possible neoplasm. 2. No adenopathy is seen within the neck. 3. Shunt catheter is noted. 4. Other findings which are chronic as noted above. Diagnostic code #9
[2020-07-11] MEDS ORDERED: Doxycycline 100 MG in Sodium Chloride 0.9% 100 ML IV ONE (14:47)
[2020-07-11 16:59] VITALS: BP 153/64
== END 2020-07-11 16:20 ==
LOC: JD.ED 09:18
DX: R22.1 Localized swelling, mass and lump, neck (principal); J84.10 Pulmonary fibrosis, unspecified; I11.0 Hypertensive heart disease with heart failure; I50.9 Heart failure, unspecified; E78.00 Pure hypercholesterolemia, unspecified; I25.2 Old myocardial infarction; J44.9 Chronic obstructive pulmonary disease, unspecified; E11.9 Type 2 diabetes mellitus without complications; E03.9 Hypothyroidism, unspecified; Z20.822 Contact with and (suspected) exposure to COVID-19; Z91.048 Other nonmedicinal substance allergy status; Z88.0 Allergy status to penicillin; Z79.4 Long term (current) use of insulin; Z79.899 Other long term (current) drug therapy
CPT/HCPCS: 36415; 70491; 71045; 80053; 83735; 83880; 85007; 85027; 85610; 85730; 86140; 87040; 93005; 96365; 96367; 96375; 96376; 99285; J1170; J1200; J2765; J3490; J7030; Q9967; U0002; 93010

== ENCOUNTER 2020-10-04 07:05 | Emergency (ER) | payer MEDICARE, BC ==
--- NOTE | 2020-10-04 07:28 | EDM.PDOC ---
ED HPI GENERAL MEDICAL PROBLEM - General Chief Complaint: Neuro Symptoms/Deficits Stated Complaint: LIGHTHEADED/DIZZY/NAUSEA Time Seen by Provider: 10/04/20 07:14 - History of Present Illness INITIAL COMMENTS - FREE TEXT/NARRATIVE: 75-year-old female comes into the emergency room with dizziness left-sided weakness poor coordination. She thinks this started yesterday morning but she is not absolutely certain her last known normal according to her was Saturday evening around 9 PM. The patient's did not witness the patient yesterday morning but the patient got out of bed about 9:00 and had some dizziness inability to concentrate. She had some intermittent nausea. This last evening she noticed her legs not necessarily doing what she wanted them to not related to dizziness and had increasing difficulty moving around. This was more noticeable this morning. Patient has a history of a MANAGER ADMINISTRATIVE shunt this they think was updated in 1999. The is not aware of any change in speech. And has not noticed any change in facial expression. Headache Pain Score (Numeric/FACES): 5 - Related Data Allergies Allergy/AdvReac Type Severity Reaction Status Date / Time mold Allergy Airway Verified 10/04/20 07:31 Tightness Penicillins Allergy Itching Verified 10/04/20 07:31 Home Meds: Home Meds Fluticasone Propionate [Flonase Allergy Relief] 1 spray CLARA BID PRN 12/05/15 [History] Folic Acid 3 mg PO DAILY 12/05/15 [History] Insulin Detemir [Levemir Flextouch] 30 unit SQ DAILY 12/05/15 [History] Levothyroxine 150 mcg PO ACBREAKFAST 12/05/15 [History] Lisinopril 20 mg PO DAILY 12/05/15 [History] Omeprazole 20 mg PO DAILY PRN 12/05/15 [History] Simvastatin [Zocor] 20 mg PO BEDTIME 12/05/15 [History] traZODone 150 mg PO BEDTIME 12/05/15 [History] traMADol [Ultram] 50 mg PO Q6H PRN #20 tablet 01/01/16 [Rx] Albuterol/Ipratropium [DuoNeb 3.0-0.5 MG/3 ML] 3 ml .XX ASDIRECTED PRN 02/02/18 [History] Fluticasone/Salmeterol [Advair 250-50] 1 puff INH BID 02/02/18 [History] Albuterol [Proventil HFA] 1 - 2 puff INH Q4HR PRN 06/23/18 [History] Diclofenac Sodium [Voltaren 1% Gel] 2 gm TOP QID 06/23/18 [History] Escitalopram [Lexapro] 20 mg PO DAILY 06/23/18 [History] Furosemide [Lasix] 20 mg PO ASDIRECTED 06/23/18 [History] Hydroxychloroquine Sulfate [Plaquenil] 200 mg PO BID 06/23/18 [History] Insulin Aspart [NovoLOG] 2 - 15 units SQ TID 06/23/18 [History] Losartan [Cozaar] 50 mg PO DAILY 06/23/18 [History] Metoprolol Succinate [Toprol Xl] 25 mg PO DAILY 06/23/18 [History] Mirabegron [Myrbetriq] 25 mg PO DAILY 06/23/18 [History] Umeclidinium Reubens [Incruse Ellipta*] 1 puff INH DAILY 06/23/18 [History] amLODIPine [Norvasc] 5 mg PO DAILY 06/23/18 [History] buPROPion HCL [Wellbutrin Xl] 150 mg PO DAILY 06/23/18 [History] tiZANidine HCl [Zanaflex] 2 mg PO BEDTIME PRN 06/23/18 [History] Furosemide [Lasix] 40 mg PO DAILY #30 tablet 11/12/18 [Rx] Oseltamivir [Tamiflu] 75 mg PO BID #8 cap 03/29/19 [Rx] Past Medical History HEENT History: Reports: Allergic Rhinitis, Hard of Hearing, Impaired Vision Cardiovascular History: Reports: High Cholesterol, Hypertension, [place] Respiratory History: Reports: Asthma, COPD, Pneumonia, Recurrent, Pulmonary Fibrosis, SOB Musculoskeletal History: Reports: RA Neurological History: Reports: Other (See Below) Other Neuro History: hydrocephalus--has a ventriculoperitoneal shunt on the ri t side. Psychiatric History: Reports: Anxiety, Depression Endocrine/Metabolic History: Reports: Diabetes, Type II, Hypothyroidism Oncologic (Cancer) History: Reports: Ovarian, Uterine - Past Surgical History GI Surgical History: Reports: Appendectomy, Cholecystectomy Female Surgical History: Reports: D&C Neurological Surgical History: Reports: Other (See Below) Other Neurological Surgeries/Procedures: back pain/spasms Social & Family History - Family History Family Medical History: No Pertinent Family History - Caffeine Use Caffeine Use: Reports: Coffee Other Caffeine Use: 2-3 cups daily coffee and seldom with soda - Living Situation & Occupation Living situation: Reports: Occupation: Retired ED ROS GENERAL - Review of Systems Review Of Systems: See Below Constitutional: Reports: Weakness. Denies: Fever, Chills HEENT: Reports: No Symptoms Respiratory: Reports: No Symptoms Cardiovascular: Reports: No Symptoms GI/Abdominal: Reports: No Symptoms Musculoskeletal: Denies: Joint Pain, Muscle Pain Skin: Reports: No Symptoms Neurological: Reports: Confusion, Dizziness, Weakness. Denies: Headache ED EXAM, GENERAL - Physical Exam Exam: See Below Exam Limited By: No Limitations General Appearance: Alert, No Apparent Distress, Other (There is a stroke score is 9. Blood sugar is 77 on admission) Eye Exam: Bilateral Eye: EOMI, PERRL Ears: Normal External Exam, Normal Canal, Hearing Grossly Normal, Normal TMs, Other (Needs she had more difficulty reading moving and reinserting her hearing aid on the left) Nose: Normal Inspection, Normal Mucosa, No Blood Throat/Mouth: Normal Inspection, Normal Lips, Normal Gums, Normal Oropharynx, Normal Voice, No Airway Compromise Head: Atraumatic, Normocephalic Neck: Normal Inspection, Supple, Non-Tender, Full Range of Motion Respiratory/Chest: No Respiratory Distress, Lungs Clear, Normal Breath Sounds Cardiovascular: Regular Rate, Rhythm, No Edema, No Murmur GI/Abdominal: Normal Bowel Sounds, Soft, Non-Tender, Other (Obese) Back Exam: Normal Inspection. No: CVA Tenderness (L), CVA Tenderness (R) Neurological: Other (Cranial nerves appear to be intact no facial droop. 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 strength equal.) Skin Exam: Warm, Dry, Intact #1 Interpretation EKG Date: 10/04/20 Rhythm: NSR Rate (Beats/Min): 64 [place]: Normal P-Wave: Present QRS: Other (Normal QRS morphology suspicious for a early transition) ST-T: Normal QT: Prolonged (Prolonged) EKG Interpretation Comments: Borderline EKG Course - Vital Signs Last Recorded V/S: Last Vital Signs Temp 36.3 C 10/04/20 07:26 Pulse 65 10/04/20 07:26 Resp 18 10/04/20 07:26 BP 173/85 H 10/04/20 07:26 Pulse Ox 94 L 10/04/20 07:26 - Orders/Labs/Meds Orders: Active Orders 24 hr Category Date Time Status EKG Documentation Completion [RC] STAT Care 10/04/20 07:38 Active Head wo Cont [CT] Routine Exams 10/04/20 07:32 Taken Labs: Laboratory Tests 10/04/20 10/04/20 10/04/20 Range/Units 07:20 07:20 07:20 WBC 6.68 (3.98-10.04) K/mm3 RBC 4.47 (3.98-5.22) M/mm3 Hgb 13.3 (11.2-15.7) gm/dl Hct 42.2 (34.1-44.9) % MCV 94.4 (79.4-94.8) fl MCH 29.8 (25.6-32.2) pg MCHC 31.5 L (32.2-35.5) g/dl RDW Std Deviation 54.4 H (36.4-46.3) fL Plt Count 208 (182-369) K/mm3 MPV 11.7 (9.4-12.3) fl Neut % (Auto) 56.4 (34.0-71.1) % Lymph % (Auto) 25.9 (19.3-51.7) % [place] % (Auto) 10.9 (4.7-12.5) % Eos % (Auto) 5.8 (0.7-5.8) Baso % (Auto) 0.9 (0.1-1.2) % Neut # (Auto) 3.76 (1.56-6.13) K/mm3 Lymph # (Auto) 1.73 (1.18-3.74) K/mm3 [place] # (Auto) 0.73 H (0.24-0.36) K/mm3 Eos # (Auto) 0.39 H (0.04-0.36) K/mm3 Baso # (Auto) 0.06 (0.01-0.08) K/mm3 PT 10.7 (9.7-12.0) SECONDS INR 1.00 APTT 21.4 L (21.7-31.4) SECONDS Sodium 142 (136-145) mEq/L Potassium 4.1 (3.5-5.1) mEq/L Chloride 106 (98-107) mEq/L Carbon Dioxide 30 (21-32) mEq/L Anion Gap 10.1 (5-15) BUN 24 H (7-18) mg/dL Creatinine 1.5 H (0.55-1.02) mg/dL Est Cr Clr Drug Dosing TNP Estimated GFR (MDRD) 34 (>60) mL/min BUN/Creatinine Ratio 16.0 (14-18) Glucose 78 (70-99) mg/dL Calcium 8.7 (8.5-10.1) mg/dL Total Bilirubin 0.4 (0.2-1.0) mg/dL AST 25 (15-37) U/L ALT 33 (14-59) U/L Alkaline Phosphatase 105 (46-116) U/L Troponin I < 0.017 (0.00-0.056) ng/mL Total Protein 7.8 (6.4-8.2) g/dl Albumin 3.1 L (3.4-5.0) g/dl Globulin 4.7 gm/dL Albumin/Globulin Ratio 0.7 L (1-2) - Re-Assessments/Exams Free Text/Narrative Re-Assessment/Exam: 10/04/20 08:36 ET evaluation of the head is suspicious for a right sided parietal subacute infarct that is somewhat small. Case was discussed with Dr. Horn, on-call neurologist at [facility] in [place] who believes the patient would be better served to be sent to the emergency room for further evaluation. I did discuss the findings and the recommendations with the patient and the patient's and they agree with the plan. Departure - Departure Time of Disposition: 08:38 Disposition: DC/Tfer to Acute Hospital 02 Clinical Impression: CVA (cerebral vascular accident) - Discharge Information Referrals: Milan Alexandra MD [Primary Care Provider] - Forms: ED Department Discharge Sepsis Event Note (ED) - Focused Exam Vital Signs: Vital Signs Temp Pulse Resp BP Pulse Ox 10/04/20 07:26 36.3 C 65 18 173/85 H 94 L - My Orders Last 24 Hours: My Active Orders 10/04/20 07:32 Head wo Cont [CT] Routine 10/04/20 07:38 EKG Documentation Completion [RC] STAT - Assessment/Plan Last 24 Hours: My Active Orders 10/04/20 07:32 Head wo Cont [CT] Routine 10/04/20 07:38 EKG Documentation Completion [RC] STAT
[2020-10-04 07:31] VITALS: BP 173/85; PULSE 65
[2020-10-04] MEDS ORDERED: Dextrose 5%-0.9% NaCl 1,000 ML IV SCH (08:45)
--- NOTE | 2020-10-04 08:52 | CT ---
Head CT Technique: Multiple axial sections through the brain were obtained. Instructed coronal and sagittal images were obtained. Comparison: Prior head CT study 10/22/13. Findings: Disconnected ventricular shunt is seen. Additional ventricular shunt is noted with connection to the outside catheter. No ventricular dilatation is seen. Sulci over the convexities are stable. Scattered areas of diminished density are seen within the periventricular white matter. This is compatible with small vessel ischemic demyelination change. Possible small subacute infarct within the posterior right parietal region extending to the cortex. No other abnormal parenchymal densities are seen. No evidence of intracranial hemorrhage is seen. No midline shift or mass-effect is seen. Bone window settings were reviewed. Visualized mastoid sinuses and paranasal sinuses show no acute abnormality. No acute calvarial abnormality is seen. Atherosclerotic calcification is noted within the carotid siphon. Impression: 1. Ventricular shunts as noted above which are stable. No ventricular dilatation is seen. 2. Mild senescent change as noted above. 3. Findings suspicious for small subacute infarct within the posterior right parietal region. MRI would be confirmatory if clinically needed. Diagnostic code #3 MTDD
== END 2020-10-04 09:15 ==
LOC: JD.ED 07:05
DX: I63.9 Cerebral infarction, unspecified (principal); E78.00 Pure hypercholesterolemia, unspecified; I10 Essential (primary) hypertension; I25.2 Old myocardial infarction; J44.9 Chronic obstructive pulmonary disease, unspecified; E11.9 Type 2 diabetes mellitus without complications; E03.9 Hypothyroidism, unspecified; Z88.0 Allergy status to penicillin; Z91.048 Other nonmedicinal substance allergy status; Z79.4 Long term (current) use of insulin; Z79.899 Other long term (current) drug therapy
CPT/HCPCS: 36415; 70450; 80053; 82947; 84484; 85025; 85610; 85730; 93005; 99285; J7042; 93010

== ENCOUNTER 2021-04-10 17:09 | Emergency (ER) | payer MEDICARE, BC ==
[2021-04-10 17:29] VITALS: BP 152/69; PULSE 68
== END 2021-04-10 19:19 | disposition home or self-care (01) ==
LOC: JD.ED 17:09
DX: U07.1 COVID-19 (principal); E78.00 Pure hypercholesterolemia, unspecified; I10 Essential (primary) hypertension; I25.2 Old myocardial infarction; E11.9 Type 2 diabetes mellitus without complications; E03.9 Hypothyroidism, unspecified; E66.9 Obesity, unspecified; Z68.38 Body mass index [BMI] 38.0-38.9, adult; Z86.73 Personal history of transient ischemic attack (TIA), and cerebral infarction without residual deficits; Z88.0 Allergy status to penicillin; Z91.048 Other nonmedicinal substance allergy status; Z79.4 Long term (current) use of insulin; Z79.899 Other long term (current) drug therapy
CPT/HCPCS: 36415; 80053; 83735; 85025; 86140; 99283

== ENCOUNTER 2021-04-11 21:51 | Emergency (ER) | payer MEDICARE, BC ==
[2021-04-11 22:13] VITALS: BP 199/77; PULSE 78
[2021-04-11] MEDS ORDERED: Acetaminophen 325 MG Tab PO ONE (22:31)
[2021-04-11] MEDS ORDERED: Dexamethasone 6 MG TABLET PO ONE (22:33)
[2021-04-11] MEDS ORDERED: Cefdinir 300 MG Cap PO ONE (22:38)
== END 2021-04-11 23:08 | disposition home or self-care (01) ==
LOC: JD.ED 21:51
DX: U07.1 COVID-19 (principal); J44.9 Chronic obstructive pulmonary disease, unspecified; E11.9 Type 2 diabetes mellitus without complications; E03.9 Hypothyroidism, unspecified; M06.9 Rheumatoid arthritis, unspecified; E66.9 Obesity, unspecified; Z68.38 Body mass index [BMI] 38.0-38.9, adult; Z91.048 Other nonmedicinal substance allergy status; Z79.899 Other long term (current) drug therapy; Z86.73 Personal history of transient ischemic attack (TIA), and cerebral infarction without residual deficits; Z87.891 Personal history of nicotine dependence
CPT/HCPCS: 71045; 99283; A9270; J8540

== ENCOUNTER 2021-06-05 12:55 | Emergency (ER) | payer MEDICARE, BC ==
[2021-06-05] MEDS ORDERED: Ondansetron 4 MG/2 ML SDV IVPUSH ONE (14:09)
[2021-06-05] MEDS ORDERED: Sodium Chloride 0.9% 1,000 ML IV STA (14:09)
[2021-06-05] MEDS ORDERED: HYDROmorphone 0.5 MG/0.5 ML Syringe IVPUSH ONE (14:09)
[2021-06-05] MEDS ORDERED: Iopamidol 612 MG/ML 100 ML Bottle IVPUSH ONE (14:15)
[2021-06-05] MEDS ORDERED: Sodium Chloride 0.9% 10 ML Syringe FLUSH PRN (14:15)
[2021-06-05 17:31] VITALS: BP 153/65; PULSE 60
== END 2021-06-05 17:10 | disposition home or self-care (01) ==
LOC: JD.ED 12:55
DX: R10.11 Right upper quadrant pain (principal); R10.31 Right lower quadrant pain; E78.00 Pure hypercholesterolemia, unspecified; I10 Essential (primary) hypertension; I25.2 Old myocardial infarction; J44.9 Chronic obstructive pulmonary disease, unspecified; K21.9 Gastro-esophageal reflux disease without esophagitis; E11.9 Type 2 diabetes mellitus without complications; E03.9 Hypothyroidism, unspecified; E66.9 Obesity, unspecified; Z68.41 Body mass index [BMI] 40.0-44.9, adult; Z86.73 Personal history of transient ischemic attack (TIA), and cerebral infarction without residual deficits; Z91.048 Other nonmedicinal substance allergy status; Z88.0 Allergy status to penicillin; Z79.4 Long term (current) use of insulin; Z79.899 Other long term (current) drug therapy; Z87.891 Personal history of nicotine dependence
CPT/HCPCS: 36415; 74176; 80053; 81001; 82977; 83690; 85025; 86140; 87086; 87088; 87186; 99284; J7030; 99285

== ENCOUNTER 2021-07-24 14:19 | Emergency (ER) | payer MEDICARE, BC ==
[2021-07-24] MEDS ORDERED: Sodium Chloride 0.9% 1,000 ML IV STA (14:52)
[2021-07-24] MEDS ORDERED: Insulin Lispro 100 Unit/ML 3 ML KwikPen SUBCUT ONE (15:56)
[2021-07-24 17:40] VITALS: BP 144/78; PULSE 78
== END 2021-07-24 17:40 | disposition home or self-care (01) ==
LOC: JD.ED 14:19
DX: E11.65 Type 2 diabetes mellitus with hyperglycemia (principal); R60.1 Generalized edema; N28.9 Disorder of kidney and ureter, unspecified; E78.00 Pure hypercholesterolemia, unspecified; I10 Essential (primary) hypertension; I25.2 Old myocardial infarction; J44.9 Chronic obstructive pulmonary disease, unspecified; K21.9 Gastro-esophageal reflux disease without esophagitis; E03.9 Hypothyroidism, unspecified; E66.9 Obesity, unspecified; Z86.73 Personal history of transient ischemic attack (TIA), and cerebral infarction without residual deficits; Z88.0 Allergy status to penicillin; Z91.048 Other nonmedicinal substance allergy status; Z79.4 Long term (current) use of insulin; Z79.899 Other long term (current) drug therapy; Z68.41 Body mass index [BMI] 40.0-44.9, adult
CPT/HCPCS: 36415; 71045; 80053; 82009; 82947; 85025; 99283; J1815; J7030; 99284

== ENCOUNTER 2021-08-22 09:43 | Emergency (ER) | payer MEDICARE, BC ==
[2021-08-22 10:53] VITALS: BP 157/80; PULSE 66
[2021-08-22 11:10] LABS: CORONAVIRUS COVID-19 NAA NEGATIVE (NEGATIVE)
[2021-08-22 12:53] LABS: ESTIMATED GFR 32 mL/min (>60)
== END 2021-08-22 13:36 | disposition home or self-care (01) ==
LOC: JD.ED 09:43
DX: J40 Bronchitis, not specified as acute or chronic (principal); I50.9 Heart failure, unspecified; J84.10 Pulmonary fibrosis, unspecified; K21.9 Gastro-esophageal reflux disease without esophagitis; E78.00 Pure hypercholesterolemia, unspecified; I25.2 Old myocardial infarction; I10 Essential (primary) hypertension; E03.9 Hypothyroidism, unspecified; E11.9 Type 2 diabetes mellitus without complications; E66.9 Obesity, unspecified; Z68.30 Body mass index [BMI] 30.0-30.9, adult; Z86.73 Personal history of transient ischemic attack (TIA), and cerebral infarction without residual deficits; Z86.16 Personal history of COVID-19; Z90.49 Acquired absence of other specified parts of digestive tract; Z79.899 Other long term (current) drug therapy; Z79.4 Long term (current) use of insulin; Z88.0 Allergy status to penicillin; Z91.048 Other nonmedicinal substance allergy status; Z20.822 Contact with and (suspected) exposure to COVID-19
CPT/HCPCS: 0241U; 36415; 71045; 80053; 83880; 84484; 86140; 93005; 99284; 93010

== ENCOUNTER 2022-01-17 17:39 | Observation (INO) | payer MEDICARE, BC ==
[2022-01-17] MEDS ORDERED: Polyethylene Glycol 3350 Powder 17 GM Packet PO PRN (18:58)
[2022-01-17] MEDS ORDERED: HALOPERIDOL LACTATE 2 MG/ML PO PRN (18:58)
[2022-01-17] MEDS ORDERED: oxyCODONE 5 MG Tab **OWN MED PO PRN (18:58)
[2022-01-17] MEDS ORDERED: Acetaminophen 650 MG Supp RECTAL PRN (18:58)
[2022-01-17] MEDS ORDERED: Triamcinolone Acetonide 0.1% Crm 15 GM Tube TOP PRN (18:58)
[2022-01-17] MEDS ORDERED: IPRATROPIUM INH PRN (18:58)
[2022-01-17] MEDS ORDERED: ALBUTEROL INH PRN (18:58)
[2022-01-17] MEDS ORDERED: HYOSCYAMINE SULFATE 0.125 MG PO PRN (18:58)
[2022-01-17] MEDS ORDERED: Sodium Chloride 0.65% Nasal Spray 45 ML Bottle NASBOTH PRN (18:58)
[2022-01-17] MEDS ORDERED: Bisacodyl 10 MG Supp RECTAL PRN (18:58)
[2022-01-17] MEDS ORDERED: Ondansetron 4 MG Tab.DIS **OWN MED PO PRN (21:22)
[2022-01-17] MEDS: Acetaminophen 325 MG Tab PO SCH (21:34)
[2022-01-17] MEDS: diphenhydrAMINE 25 MG Cap PO SCH (22:28)
[2022-01-17] MEDS: LORAZEPAM 1 MG PO SCH (22:31)
[2022-01-17] MEDS: Famotidine 20 MG Tab **OWN MED PO SCH (22:32)
[2022-01-18] MEDS: MORPHINE 20 MG/ML PO PRN (00:27)
[2022-01-18] MEDS: LEVOTHYROXINE 175 MCG PO SCH (06:07)
[2022-01-18] MEDS ORDERED: Diclofenac Sodium 1% Gel 100 GM Tube TOP PRN (09:00)
[2022-01-18] MEDS ORDERED: Sennosides 8.6 MG Tab PO SCH (09:00)
[2022-01-18] MEDS ORDERED: Fluticasone NASAL Spray 16 GM Bottle NASBOTH PRN (11:59)
[2022-01-18] MEDS ORDERED: Formoterol/Mometasone 100-5 MCG 8.8 GM Inhaler IH PRN (12:25)
[2022-01-18] MEDS: INSULN SQ SCH ×4 (13:06→21:03)
[2022-01-18] MEDS: INSULIN DETEMIR 100 UNIT/ML SQ SCH ×4 (13:06→21:03)
[2022-01-18] MEDS: INSULIN ASPART 100 UNIT/ML SQ SCH ×2 (13:13→18:00)
[2022-01-18] MEDS: ESCITALOPRAM 20 MG PO SCH (13:57)
[2022-01-18] MEDS: OXYBUTYNIN CHLORIDE 10 MG PO SCH (13:58)
[2022-01-18] MEDS: Metoprolol Succinate 25 MG Tab.ER **PTOM PO SCH (13:58)
[2022-01-18] MEDS: predniSONE 10 MG Tab **PTOM PO SCH (13:58)
[2022-01-18] MEDS: BUPROPION 150 MG PO SCH (13:59)
[2022-01-18] MEDS: Sennosides 8.6 MG Tab PO SCH (13:59)
[2022-01-18] MEDS: LORAZEPAM 1 MG PO SCH ×3 (13:59→21:02)
[2022-01-18] MEDS: Acetaminophen 325 MG Tab PO SCH ×3 (14:46→21:05)
[2022-01-18] MEDS: Furosemide 40 MG Tab **PTOM PO SCH (14:48)
[2022-01-18] MEDS: Nystatin Topical Powder 15 GM Bottle TOP SCH ×2 (14:49→21:03)
[2022-01-18] MEDS ORDERED: Insulin Aspart Protamine/Insulin Aspart 70-30 100 Units/ML 10 ML Vial SUBCUT SCH (17:00)
[2022-01-18] MEDS ORDERED: INSULIN ASPART 100 UNIT/ML SQ SCH (17:00)
[2022-01-18] MEDS: diphenhydrAMINE 25 MG Cap PO SCH (21:02)
[2022-01-18] MEDS: Famotidine 20 MG Tab **OWN MED PO SCH (21:04)
[2022-01-18] MEDS: TRAZODONE 100 MG PO SCH (21:04)
[2022-01-19] MEDS: oxyCODONE 5 MG Tab **OWN MED PO PRN ×2 (00:09→16:01)
[2022-01-19] MEDS: LEVOTHYROXINE 175 MCG PO SCH (07:01)
[2022-01-19] MEDS: Furosemide 40 MG Tab **PTOM PO SCH ×2 (07:01→14:33)
[2022-01-19] MEDS: OXYBUTYNIN CHLORIDE 10 MG PO SCH (09:14)
[2022-01-19] MEDS: LORAZEPAM 1 MG PO SCH ×2 (09:14→22:04)
[2022-01-19] MEDS: Metoprolol Succinate 25 MG Tab.ER **PTOM PO SCH (09:20)
[2022-01-19] MEDS: BUPROPION 150 MG PO SCH (09:21)
[2022-01-19] MEDS: METOLAZONE 2.5 MG PO SCH (09:23)
[2022-01-19] MEDS: Sennosides 8.6 MG Tab PO SCH (09:24)
[2022-01-19] MEDS: Acetaminophen 325 MG Tab PO SCH ×3 (09:25→22:06)
[2022-01-19] MEDS: ESCITALOPRAM 20 MG PO SCH (09:26)
[2022-01-19] MEDS: predniSONE 10 MG Tab **PTOM PO SCH (09:26)
[2022-01-19] MEDS: Nystatin Topical Powder 15 GM Bottle TOP SCH ×3 (09:27→22:05)
[2022-01-19] MEDS: INSULIN ASPART 100 UNIT/ML SQ SCH ×3 (09:29→17:17)
[2022-01-19] MEDS: INSULN SQ SCH ×2 (09:30→22:05)
[2022-01-19] MEDS: INSULIN DETEMIR 100 UNIT/ML SQ SCH ×2 (09:30→22:05)
[2022-01-19] MEDS: LORazepam 0.5 MG Tab PO PRN ×2 (11:31→17:28)
[2022-01-19] MEDS: MORPHINE 20 MG/ML PO PRN (16:05)
[2022-01-19] MEDS: diphenhydrAMINE 25 MG Cap PO SCH (22:05)
[2022-01-19] MEDS: Famotidine 20 MG Tab **OWN MED PO SCH (22:06)
[2022-01-19] MEDS: TRAZODONE 100 MG PO SCH (22:06)
[2022-01-20] MEDS: oxyCODONE 5 MG Tab **OWN MED PO PRN (04:29)
[2022-01-20] MEDS: LORazepam 0.5 MG Tab PO PRN ×2 (04:29→15:55)
[2022-01-20] MEDS: Furosemide 40 MG Tab **PTOM PO SCH ×2 (06:15→14:25)
[2022-01-20] MEDS: LEVOTHYROXINE 175 MCG PO SCH (06:15)
[2022-01-20] MEDS: INSULIN ASPART 100 UNIT/ML SQ SCH ×3 (07:54→17:49)
[2022-01-20] MEDS: INSULN SQ SCH ×2 (09:59→21:32)
[2022-01-20] MEDS: INSULIN DETEMIR 100 UNIT/ML SQ SCH ×2 (09:59→21:32)
[2022-01-20] MEDS: LORAZEPAM 1 MG PO SCH ×2 (10:01→21:31)
[2022-01-20] MEDS: Acetaminophen 325 MG Tab PO SCH ×3 (10:02→21:33)
[2022-01-20] MEDS: Sennosides 8.6 MG Tab PO SCH (10:02)
[2022-01-20] MEDS: Metoprolol Succinate 25 MG Tab.ER **PTOM PO SCH (10:04)
[2022-01-20] MEDS: Nystatin Topical Powder 15 GM Bottle TOP SCH ×3 (10:04→21:32)
[2022-01-20] MEDS: ESCITALOPRAM 20 MG PO SCH (10:04)
[2022-01-20] MEDS: OXYBUTYNIN CHLORIDE 10 MG PO SCH (10:05)
[2022-01-20] MEDS: BUPROPION 150 MG PO SCH (10:06)
[2022-01-20] MEDS: predniSONE 10 MG Tab **PTOM PO SCH (10:06)
[2022-01-20] MEDS: diphenhydrAMINE 25 MG Cap PO SCH (21:32)
[2022-01-20] MEDS: TRAZODONE 100 MG PO SCH (21:33)
[2022-01-20] MEDS: Famotidine 20 MG Tab **OWN MED PO SCH (21:33)
[2022-01-21] MEDS: oxyCODONE 5 MG Tab **OWN MED PO PRN (01:00)
[2022-01-21] MEDS: LORazepam 0.5 MG Tab PO PRN ×2 (01:00→14:51)
[2022-01-21] MEDS: Furosemide 40 MG Tab **PTOM PO SCH ×2 (06:20→14:49)
[2022-01-21] MEDS: LEVOTHYROXINE 175 MCG PO SCH (06:20)
[2022-01-21] MEDS: INSULIN ASPART 100 UNIT/ML SQ SCH ×3 (07:30→17:55)
[2022-01-21] MEDS: Acetaminophen 325 MG Tab PO SCH ×3 (09:01→21:27)
[2022-01-21] MEDS: Sennosides 8.6 MG Tab PO SCH (09:02)
[2022-01-21] MEDS: LORAZEPAM 1 MG PO SCH (09:02)
[2022-01-21] MEDS: INSULIN DETEMIR 100 UNIT/ML SQ SCH ×2 (09:03→21:26)
[2022-01-21] MEDS: ESCITALOPRAM 20 MG PO SCH (09:03)
[2022-01-21] MEDS: INSULN SQ SCH ×2 (09:03→21:26)
[2022-01-21] MEDS: Nystatin Topical Powder 15 GM Bottle TOP SCH ×3 (09:04→21:26)
[2022-01-21] MEDS: predniSONE 10 MG Tab **PTOM PO SCH (09:04)
[2022-01-21] MEDS: OXYBUTYNIN CHLORIDE 10 MG PO SCH (09:04)
[2022-01-21] MEDS: Metoprolol Succinate 25 MG Tab.ER **PTOM PO SCH (09:04)
[2022-01-21] MEDS: BUPROPION 150 MG PO SCH (09:05)
[2022-01-21] MEDS: diphenhydrAMINE 25 MG Cap PO SCH (21:26)
[2022-01-21] MEDS: Famotidine 20 MG Tab **OWN MED PO SCH (21:27)
[2022-01-21] MEDS: TRAZODONE 100 MG PO SCH (21:27)
[2022-01-22] MEDS: oxyCODONE 5 MG Tab **OWN MED PO PRN ×2 (01:28→15:15)
[2022-01-22] MEDS: Furosemide 40 MG Tab **PTOM PO SCH ×2 (05:04→15:14)
[2022-01-22] MEDS: LORazepam 0.5 MG Tab PO PRN ×2 (05:04→14:19)
[2022-01-22] MEDS: LEVOTHYROXINE 175 MCG PO SCH (05:04)
[2022-01-22] MEDS: Acetaminophen 325 MG Tab PO SCH ×2 (08:42→14:19)
[2022-01-22] MEDS: Sennosides 8.6 MG Tab PO SCH (08:42)
[2022-01-22] MEDS: INSULIN ASPART 100 UNIT/ML SQ SCH ×2 (08:43→11:22)
[2022-01-22] MEDS: METOLAZONE 2.5 MG PO SCH (08:44)
[2022-01-22] MEDS: ESCITALOPRAM 20 MG PO SCH (08:46)
[2022-01-22] MEDS: INSULIN DETEMIR 100 UNIT/ML SQ SCH (08:47)
[2022-01-22] MEDS: Nystatin Topical Powder 15 GM Bottle TOP SCH ×2 (08:47→15:14)
[2022-01-22] MEDS: OXYBUTYNIN CHLORIDE 10 MG PO SCH (08:47)
[2022-01-22] MEDS: INSULN SQ SCH (08:47)
[2022-01-22] MEDS: Metoprolol Succinate 25 MG Tab.ER **PTOM PO SCH (08:48)
[2022-01-22] MEDS: predniSONE 10 MG Tab **PTOM PO SCH (08:48)
[2022-01-22 08:53] VITALS: BP 102/50; PULSE 79
[2022-01-22] MEDS: BUPROPION 150 MG PO SCH (08:53)
[2022-01-22] MEDS ORDERED: Sodium Chloride 0.9% 10 ML Syringe FLUSH PRN (16:32)
[2022-01-23] MEDS ORDERED: AZITHROMYCIN 250 MG PO SCH (09:00)
== END 2022-01-22 16:26 ==
LOC: JD.MS 17:39
PROVIDERS: ADMIT Hospitalist; ATTEND Hospitalist
DX: Z51.5 Encounter for palliative care (principal)
CPT/HCPCS: 82947; 94760; A9270; G0378; G0379; J7512

== ENCOUNTER 2022-01-22 16:21 | Inpatient (IN) | payer MEDICARE, BC ==
[2022-01-22] MEDS ORDERED: Sodium Chloride 0.9% 10 ML Syringe FLUSH PRN (17:13)
[2022-01-22] MEDS ORDERED: Polyethylene Glycol 3350 Powder 17 GM Packet PO PRN (17:18)
[2022-01-22] MEDS ORDERED: Triamcinolone Acetonide 0.1% Crm 15 GM Tube TOP PRN (17:18)
[2022-01-22] MEDS ORDERED: Diclofenac Sodium 1% Gel 100 GM Tube TOP PRN (17:18)
[2022-01-22] MEDS ORDERED: Albuterol/Ipratropium 3.0-0.5 MG/3 ML Neb Soln INH PRN (17:18)
[2022-01-22] MEDS ORDERED: Bisacodyl 10 MG Supp RECTAL PRN (17:18)
[2022-01-22] MEDS ORDERED: Sodium Chloride 0.65% Nasal Spray 45 ML Bottle NASBOTH PRN (17:18)
[2022-01-22] MEDS ORDERED: Ondansetron 4 MG Tab.DIS PO PRN (17:18)
[2022-01-22] MEDS ORDERED: Haloperidol 1 MG Tab PO PRN (17:42)
[2022-01-22] MEDS ORDERED: Formoterol/Mometasone 200-5 MCG 8.8 GM Inhaler IH PRN (17:51)
[2022-01-22] MEDS: Furosemide 40 MG Tab PO SCH (17:52)
[2022-01-22] MEDS ORDERED: Morphine Oral Concentrate 20 MG/ML 30 ML Bottle PO PRN (18:03)
[2022-01-22] MEDS ORDERED: Haloperidol Lactate 2 MG/ML Oral Soln 15 ML Bottle PO PRN (18:07)
[2022-01-22] MEDS: LORazepam 0.5 MG Tab PO PRN (18:16)
[2022-01-22] MEDS: Insulin Lispro 100 Unit/ML 3 ML KwikPen SUBCUT SCH (18:29)
[2022-01-22] MEDS ORDERED: Sodium Chloride 0.9% 10 ML Syringe FLUSH SCH (21:00)
[2022-01-22] MEDS ORDERED: Insulin Lispro 100 Unit/ML 3 ML KwikPen SUBCUT SCH (21:00)
[2022-01-22] MEDS: Famotidine 20 MG Tab PO SCH (21:18)
[2022-01-22] MEDS: Acetaminophen 325 MG Tab PO SCH (21:19)
[2022-01-22] MEDS: traZODone 50 MG Tab PO SCH (21:20)
[2022-01-22] MEDS: diphenhydrAMINE 25 MG Cap PO SCH (21:20)
[2022-01-22] MEDS: Insulin Glargine,Human Rec. Analog 100 Units/ML 3 ML Pen SUBCUT SCH (21:23)
[2022-01-22] MEDS: Nystatin Topical Powder 15 GM Bottle TOP SCH (21:26)
[2022-01-23] MEDS: LORazepam 0.5 MG Tab PO PRN ×2 (00:16→12:44)
[2022-01-23] MEDS: oxyCODONE 5 MG Tab PO PRN ×2 (01:56→14:08)
[2022-01-23] MEDS: Furosemide 40 MG Tab PO SCH ×2 (06:23→14:10)
[2022-01-23] MEDS: Pantoprazole 40 MG Tab.CR PO SCH (06:23)
[2022-01-23] MEDS: Levothyroxine 75 MCG Tab PO SCH (06:24)
[2022-01-23] MEDS: Levothyroxine 100 MCG Tab PO SCH (06:24)
[2022-01-23] MEDS: Acetaminophen 325 MG Tab PO SCH ×3 (08:04→20:50)
[2022-01-23] MEDS: Metoprolol Succinate 25 MG Tab.ER PO SCH (08:05)
[2022-01-23] MEDS: predniSONE 10 MG Tab PO SCH (08:06)
[2022-01-23] MEDS: Nystatin Topical Powder 15 GM Bottle TOP SCH ×3 (08:06→20:48)
[2022-01-23] MEDS: Citalopram 20 MG Tab PO SCH (08:06)
[2022-01-23] MEDS: Oxybutynin 5 MG Tab.ER PO SCH (08:06)
[2022-01-23] MEDS: Azithromycin 250 MG Tab PO SCH (08:06)
[2022-01-23] MEDS: buPROPion 150 MG Tab.ER PO SCH (08:06)
[2022-01-23] MEDS: Insulin Glargine,Human Rec. Analog 100 Units/ML 3 ML Pen SUBCUT SCH ×2 (08:07→20:46)
[2022-01-23] MEDS: Insulin Lispro 100 Unit/ML 3 ML KwikPen SUBCUT SCH ×3 (08:14→17:34)
[2022-01-23] MEDS ORDERED: Morphine 10 MG/0.5 ML Oral Syringe PO PRN (10:13)
[2022-01-23] MEDS: traZODone 50 MG Tab PO SCH (20:49)
[2022-01-23] MEDS: Famotidine 20 MG Tab PO SCH (20:51)
[2022-01-23] MEDS: diphenhydrAMINE 25 MG Cap PO SCH (20:51)
[2022-01-24] MEDS: LORazepam 0.5 MG Tab PO PRN ×3 (02:04→16:06)
[2022-01-24] MEDS: Levothyroxine 100 MCG Tab PO SCH (06:05)
[2022-01-24] MEDS: Levothyroxine 75 MCG Tab PO SCH (06:05)
[2022-01-24] MEDS: Furosemide 40 MG Tab PO SCH ×2 (06:05→14:12)
[2022-01-24] MEDS: Pantoprazole 40 MG Tab.CR PO SCH (06:05)
[2022-01-24] MEDS: oxyCODONE 5 MG Tab PO PRN ×2 (07:56→16:13)
[2022-01-24] MEDS: Insulin Lispro 100 Unit/ML 3 ML KwikPen SUBCUT SCH ×3 (07:56→17:34)
[2022-01-24] MEDS: buPROPion 150 MG Tab.ER PO SCH (09:21)
[2022-01-24] MEDS: Acetaminophen 325 MG Tab PO SCH ×3 (09:22→20:32)
[2022-01-24] MEDS: Citalopram 20 MG Tab PO SCH (09:22)
[2022-01-24] MEDS: Metolazone 2.5 MG Tab PO SCH (09:24)
[2022-01-24] MEDS: Oxybutynin 5 MG Tab.ER PO SCH (09:25)
[2022-01-24] MEDS: Azithromycin 250 MG Tab PO SCH (09:25)
[2022-01-24] MEDS: Metoprolol Succinate 25 MG Tab.ER PO SCH (09:25)
[2022-01-24] MEDS: predniSONE 10 MG Tab PO SCH (09:26)
[2022-01-24] MEDS: Insulin Glargine,Human Rec. Analog 100 Units/ML 3 ML Pen SUBCUT SCH ×2 (09:29→20:39)
[2022-01-24] MEDS: Nystatin Topical Powder 15 GM Bottle TOP SCH ×3 (09:33→20:24)
[2022-01-24] MEDS ORDERED: Glucagon,Human Recombinant 1 MG Vial IVPUSH ONE (19:45)
[2022-01-24] MEDS ORDERED: LORazepam 2 MG/ML SDV IVPUSH ONE (19:45)
[2022-01-24] MEDS: diphenhydrAMINE 25 MG Cap PO SCH (20:23)
[2022-01-24] MEDS: Famotidine 20 MG Tab PO SCH (20:32)
[2022-01-24] MEDS: traZODone 50 MG Tab PO SCH (20:32)
[2022-01-24] MEDS ORDERED: Morphine 2 MG/ML SYRINGE IVPUSH PRN (22:21)
[2022-01-24] MEDS ORDERED: LORazepam 2 MG/ML SDV IVPUSH PRN (22:21)
[2022-01-25] MEDS: Insulin Lispro 100 Unit/ML 3 ML KwikPen SUBCUT SCH ×3 (06:48→17:32)
[2022-01-25] MEDS: Levothyroxine 100 MCG Tab PO SCH (07:30)
[2022-01-25] MEDS: Furosemide 40 MG Tab PO SCH ×2 (07:30→15:41)
[2022-01-25] MEDS: Pantoprazole 40 MG Tab.CR PO SCH (07:30)
[2022-01-25] MEDS: Levothyroxine 75 MCG Tab PO SCH (07:30)
[2022-01-25] MEDS: Insulin Glargine,Human Rec. Analog 100 Units/ML 3 ML Pen SUBCUT SCH ×2 (08:03→20:06)
[2022-01-25] MEDS: Nystatin Topical Powder 15 GM Bottle TOP SCH ×3 (09:15→20:07)
[2022-01-25] MEDS: Citalopram 20 MG Tab PO SCH (11:43)
[2022-01-25] MEDS: predniSONE 10 MG Tab PO SCH (11:44)
[2022-01-25] MEDS: Oxybutynin 5 MG Tab.ER PO SCH (11:44)
[2022-01-25] MEDS: buPROPion 150 MG Tab.ER PO SCH (11:44)
[2022-01-25] MEDS: Azithromycin 250 MG Tab PO SCH (11:44)
[2022-01-25] MEDS: Metoprolol Succinate 25 MG Tab.ER PO SCH (11:45)
[2022-01-25] MEDS: Acetaminophen 325 MG Tab PO SCH ×3 (11:45→20:05)
[2022-01-25] MEDS: LORazepam 0.5 MG Tab PO PRN ×2 (15:43→20:06)
[2022-01-25] MEDS: oxyCODONE 5 MG Tab PO PRN (18:22)
[2022-01-25] MEDS: traZODone 50 MG Tab PO SCH (20:05)
[2022-01-25] MEDS: diphenhydrAMINE 25 MG Cap PO SCH (20:06)
[2022-01-25] MEDS: Famotidine 20 MG Tab PO SCH (20:06)
[2022-01-26] MEDS: oxyCODONE 5 MG Tab PO PRN ×2 (03:19→15:44)
[2022-01-26 05:44] LABS: CORONAVIRUS COVID-19 NAA NEGATIVE (NEGATIVE)
[2022-01-26] MEDS: Furosemide 40 MG Tab PO SCH ×2 (06:35→14:37)
[2022-01-26] MEDS: Levothyroxine 75 MCG Tab PO SCH (06:35)
[2022-01-26] MEDS: LORazepam 0.5 MG Tab PO PRN ×3 (06:35→15:27)
[2022-01-26] MEDS: Levothyroxine 100 MCG Tab PO SCH (06:35)
[2022-01-26] MEDS: Insulin Lispro 100 Unit/ML 3 ML KwikPen SUBCUT SCH ×3 (06:37→16:58)
[2022-01-26] MEDS: Pantoprazole 40 MG Tab.CR PO SCH (06:37)
[2022-01-26] MEDS: buPROPion 150 MG Tab.ER PO SCH (08:29)
[2022-01-26] MEDS: Metoprolol Succinate 25 MG Tab.ER PO SCH (08:29)
[2022-01-26] MEDS: Acetaminophen 325 MG Tab PO SCH ×3 (08:34→20:51)
[2022-01-26] MEDS: Metolazone 2.5 MG Tab PO SCH (08:34)
[2022-01-26] MEDS: Oxybutynin 5 MG Tab.ER PO SCH (08:34)
[2022-01-26] MEDS: Azithromycin 250 MG Tab PO SCH (08:34)
[2022-01-26] MEDS: Citalopram 20 MG Tab PO SCH (08:34)
[2022-01-26] MEDS: predniSONE 10 MG Tab PO SCH (08:35)
[2022-01-26] MEDS: Nystatin Topical Powder 15 GM Bottle TOP SCH ×3 (08:37→21:44)
[2022-01-26] MEDS: Insulin Glargine,Human Rec. Analog 100 Units/ML 3 ML Pen SUBCUT SCH ×2 (08:45→20:52)
[2022-01-26] MEDS: traZODone 50 MG Tab PO SCH (20:51)
[2022-01-26] MEDS: diphenhydrAMINE 25 MG Cap PO SCH (20:51)
[2022-01-26] MEDS: Famotidine 20 MG Tab PO SCH (20:51)
[2022-01-27] MEDS: LORazepam 0.5 MG Tab PO PRN ×2 (00:19→17:31)
[2022-01-27] MEDS: oxyCODONE 5 MG Tab PO PRN ×3 (01:26→20:28)
[2022-01-27] MEDS: Pantoprazole 40 MG Tab.CR PO SCH (06:42)
[2022-01-27] MEDS: Levothyroxine 75 MCG Tab PO SCH (06:42)
[2022-01-27] MEDS: Levothyroxine 100 MCG Tab PO SCH (06:42)
[2022-01-27] MEDS: Furosemide 40 MG Tab PO SCH ×2 (06:42→14:30)
[2022-01-27] MEDS: Insulin Lispro 100 Unit/ML 3 ML KwikPen SUBCUT SCH ×3 (07:56→17:02)
[2022-01-27] MEDS: buPROPion 150 MG Tab.ER PO SCH (08:41)
[2022-01-27] MEDS: Azithromycin 250 MG Tab PO SCH (08:41)
[2022-01-27] MEDS: Oxybutynin 5 MG Tab.ER PO SCH (08:41)
[2022-01-27] MEDS: Metoprolol Succinate 25 MG Tab.ER PO SCH (08:41)
[2022-01-27] MEDS: Citalopram 20 MG Tab PO SCH (08:41)
[2022-01-27] MEDS: predniSONE 10 MG Tab PO SCH (08:44)
[2022-01-27] MEDS: Acetaminophen 325 MG Tab PO SCH ×3 (08:44→20:27)
[2022-01-27] MEDS: Insulin Glargine,Human Rec. Analog 100 Units/ML 3 ML Pen SUBCUT SCH ×2 (08:46→20:26)
[2022-01-27] MEDS: Nystatin Topical Powder 15 GM Bottle TOP SCH ×3 (08:47→20:26)
[2022-01-27] MEDS: diphenhydrAMINE 25 MG Cap PO SCH (20:25)
[2022-01-27] MEDS: Famotidine 20 MG Tab PO SCH (20:27)
[2022-01-27] MEDS: traZODone 50 MG Tab PO SCH (20:27)
[2022-01-28] MEDS: LORazepam 0.5 MG Tab PO PRN ×2 (03:58→14:08)
[2022-01-28] MEDS: Levothyroxine 75 MCG Tab PO SCH (06:27)
[2022-01-28] MEDS: Insulin Lispro 100 Unit/ML 3 ML KwikPen SUBCUT SCH ×3 (06:27→16:28)
[2022-01-28] MEDS: Levothyroxine 100 MCG Tab PO SCH (06:27)
[2022-01-28] MEDS: Pantoprazole 40 MG Tab.CR PO SCH (06:27)
[2022-01-28] MEDS: Furosemide 40 MG Tab PO SCH ×2 (06:27→13:58)
[2022-01-28] MEDS: Nystatin Topical Powder 15 GM Bottle TOP SCH ×3 (08:33→20:12)
[2022-01-28] MEDS: Oxybutynin 5 MG Tab.ER PO SCH (08:34)
[2022-01-28] MEDS: predniSONE 10 MG Tab PO SCH (08:34)
[2022-01-28] MEDS: buPROPion 150 MG Tab.ER PO SCH (08:34)
[2022-01-28] MEDS: Citalopram 20 MG Tab PO SCH (08:34)
[2022-01-28] MEDS: Azithromycin 250 MG Tab PO SCH (08:34)
[2022-01-28] MEDS: Metoprolol Succinate 25 MG Tab.ER PO SCH (08:34)
[2022-01-28] MEDS: Acetaminophen 325 MG Tab PO SCH ×3 (08:38→20:13)
[2022-01-28] MEDS: Insulin Glargine,Human Rec. Analog 100 Units/ML 3 ML Pen SUBCUT SCH ×2 (08:39→20:11)
[2022-01-28] MEDS: diphenhydrAMINE 25 MG Cap PO SCH (20:11)
[2022-01-28] MEDS: oxyCODONE 5 MG Tab PO PRN (20:12)
[2022-01-28] MEDS: Famotidine 20 MG Tab PO SCH (20:13)
[2022-01-28] MEDS: traZODone 50 MG Tab PO SCH (20:14)
[2022-01-29] MEDS: LORazepam 0.5 MG Tab PO PRN ×2 (00:02→08:13)
[2022-01-29] MEDS: Levothyroxine 100 MCG Tab PO SCH (06:53)
[2022-01-29] MEDS: Furosemide 40 MG Tab PO SCH (06:53)
[2022-01-29] MEDS: Levothyroxine 75 MCG Tab PO SCH (06:54)
[2022-01-29] MEDS: oxyCODONE 5 MG Tab PO PRN (06:54)
[2022-01-29] MEDS: Pantoprazole 40 MG Tab.CR PO SCH (06:55)
[2022-01-29] MEDS: Insulin Lispro 100 Unit/ML 3 ML KwikPen SUBCUT SCH ×2 (08:07→11:09)
[2022-01-29] MEDS: Oxybutynin 5 MG Tab.ER PO SCH (08:09)
[2022-01-29] MEDS: Metoprolol Succinate 25 MG Tab.ER PO SCH (08:09)
[2022-01-29] MEDS: buPROPion 150 MG Tab.ER PO SCH (08:12)
[2022-01-29] MEDS: Citalopram 20 MG Tab PO SCH (08:13)
[2022-01-29] MEDS: Metolazone 2.5 MG Tab PO SCH (08:13)
[2022-01-29] MEDS: Acetaminophen 325 MG Tab PO SCH (08:13)
[2022-01-29] MEDS: Azithromycin 250 MG Tab PO SCH (08:13)
[2022-01-29] MEDS: predniSONE 10 MG Tab PO SCH (08:14)
[2022-01-29] MEDS: Nystatin Topical Powder 15 GM Bottle TOP SCH (08:14)
[2022-01-29] MEDS: Insulin Glargine,Human Rec. Analog 100 Units/ML 3 ML Pen SUBCUT SCH (08:15)
[2022-01-29 08:21] VITALS: BP 103/80; PULSE 71
== END 2022-01-29 12:53 | disposition hospice, home (50) | DRG 951 ==
LOC: JD.MS 16:21
PROVIDERS: ADMIT Internal Medicine; ATTEND Internal Medicine
DX: Z51.5 Encounter for palliative care (principal); J96.20 Acute and chronic respiratory failure, unspecified whether with hypoxia or hypercapnia; Z68.41 Body mass index [BMI] 40.0-44.9, adult; E11.9 Type 2 diabetes mellitus without complications; J84.10 Pulmonary fibrosis, unspecified; Z66 Do not resuscitate; J10.1 Influenza due to other identified influenza virus with other respiratory manifestations; I27.20 Pulmonary hypertension, unspecified; J44.9 Chronic obstructive pulmonary disease, unspecified; F41.9 Anxiety disorder, unspecified; F32.A Depression, unspecified; E78.5 Hyperlipidemia, unspecified; Z96.0 Presence of urogenital implants; Z20.822 Contact with and (suspected) exposure to COVID-19; K21.9 Gastro-esophageal reflux disease without esophagitis; E66.9 Obesity, unspecified; Z86.73 Personal history of transient ischemic attack (TIA), and cerebral infarction without residual deficits; Z88.0 Allergy status to penicillin; Z87.01 Personal history of pneumonia (recurrent); Z86.16 Personal history of COVID-19; Z90.49 Acquired absence of other specified parts of digestive tract; I25.2 Old myocardial infarction; Z88.8 Allergy status to other drugs, medicaments and biological substances; Z79.1 Long term (current) use of non-steroidal anti-inflammatories (NSAID); Z79.899 Other long term (current) drug therapy; Z79.890 Hormone replacement therapy; Z79.4 Long term (current) use of insulin
CPT/HCPCS: 0241U; 82947; 94760; A9270-GY; J1610; J1815; J1815-GY; J2060; J2270; J7512; U0002